=== PATIENT | male | born 1935 | race Caucasian/White ===

== ENCOUNTER 2016-05-19 10:20 | Inpatient (IN) ==
[2016-05-19] MEDS ORDERED: methylPREDNISolone 125 MG/2 ML VIAL IVP ONE (10:23)
[2016-05-19] MEDS ORDERED: Ipratropium/Albuterol Neb 3 ML IH ONE (10:23)
[2016-05-19] MEDS ORDERED: Ipratropium/Albuterol Neb 3 ML ONE (10:25)
--- NOTE | 2016-05-19 10:26 | Emergency Department Note ---
Disposition Clinical Impression: Atrial fibrillation with RVR Pneumonia Qualifiers: Pneumonia type: due to unspecified organism Laterality: left Lung location: lower lobe of lung Qualified Code(s): J18.1 - Lobar pneumonia, unspecified organism Disposition: Admitted As Inpatient Condition: Serious Referrals: Jaspreet Bal Jr, MD [Primary Care Provider] - Forms: ED Satisfaction Letter Time of Disposition: 12:02 SOB HPI - General Chief Complaint: ED Shortness of Breath/Dyspnea Stated Complaint: MYNOR Time Seen by Provider: 05/19/16 10:24 Source: patient Mode of arrival: EMS Limitations: no limitations Nursing Notes Reviewed: Yes Vital Signs Reviewed: Yes - History of Present Illness 81-year-old with a history of lung cancer comes in with increasing shortness of breath. Squad reports that his pulse ox was in the high 70s on their arrival. Given an albuterol treatment and oxygen with coming up to the 88 range. The patient states he is a DNR and does not want to be intubated no resuscitation. Recent renal function has been normal. Echocardiogram done 02/2015 showed an EF of 40%. Pt Subjective Complaint: shortness of breath Onset (ago): Just S3B [employer] Context: recent illness (On cancer) Severity: moderate Consistency/Duration: constant Improves with: bronchodilators Worsens with: exertion Known history of: COPD Associated symptoms: Reports: cough, wheezing Treatment prior to arrival: oxygen, bronchodilator Cough present: Yes Cough Description: Involuntary Cough Frequency: Intermittent - Related Data Home Medications Medication Instructions Recorded Confirmed Budesonide/Formoterol 160/4.5 2 puff IH BIDR 02/28/15 12/17/15 [Symbicort 160/4.5] Furosemide [Lasix] 40 mg PO DAILY 02/28/15 12/17/15 Metoprolol XL (24 HR) Succ [Toprol 50 mg PO DAILY 02/28/15 12/17/15 Xl] Simvastatin [Zocor] 20 mg PO DAILY 02/28/15 12/17/15 Tamsulosin [Flomax] 0.4 mg PO DAILY 02/28/15 12/17/15 Tiotropium [Spiriva] 18 mcg IH DAILY 02/28/15 12/17/15 Zolpidem [Ambien] 10 mg PO HS 02/28/15 12/17/15 Albuterol Sulfate [Albuterol 2 puff IH Q4H PRN 12/17/15 12/17/15 Inhaler] Losartan Potassium [Cozaar] 50 mg PO DAILY 12/17/15 12/17/15 PredniSONE 10 mg PO TAPER MDD Started 12/17/15 12/17/15 12-15-15. Ranolazine [Ranexa] 500 mg PO BID 12/17/15 12/17/15 TraMADol [Ultram] 50 - 100 mg PO Q4-6H PRN 12/17/15 12/17/15 Previous Rx's Medication Instructions Recorded Aspirin 81 mg PO DAILY #30 tab.chew 03/01/15 Citalopram [CeleXA] 20 mg PO DAILY #30 tablet 12/20/15 Levofloxacin [Levaquin] 500 mg PO DAILY #4 tablet 12/20/15 OxyCODONE Immed Rel [Roxicodone 5 5 - 10 mg PO Q6H PRN #60 tab 12/20/15 MG] PredniSONE 30 mg PO AD #9 tablet 12/20/15 Azithromycin [Azithromycin 6-Tab 250 mg PO PER PKG DI #6 tab 03/06/16 Pack] PredniSONE 60 mg PO DAILY #9 tablet 03/06/16 Allergies Allergy/AdvReac Type Severity Reaction Status Date / Time codeine Allergy Anaphylaxis Verified 05/20/15 09:12 Constitutional: Denies: fever, chills, weakness, weight change Eyes: Denies: eye pain, eye discharge, vision change ENT ED: Denies: ear pain, throat pain, dental pain, hearing loss, epistaxis, congestion, dysphagia Cardiovascular: Denies: chest pain, palpitations, dyspnea on exertion, edema, syncope Respiratory: Reports: cough, dyspnea, wheezes. Denies: hemoptysis, stridor Gastrointestinal: Denies: abdominal pain, nausea, vomiting, diarrhea, constipation, hematemesis, melena, hematochezia Genitourinary: Denies: urgency, dysuria, frequency, hematuria Musculoskeletal: Denies: back pain, neck pain, arthralgia, myalgia Integumentary: Denies: rash, abrasion, lesions Neurological: Denies: headache, weakness, numbness, paresthesias, confusion, abnormal gait, vertigo Psychiatric: Denies: anxiety, depression, suicidal thoughts, homicidal thoughts , auditory hallucinations, visual hallucinations Endocrine: Denies: fatigue Hematological/Lymphatic: Denies: easy bleeding, easy bruising Allergic/Immunologic: Denies: facial swelling, urticaria Past Medical History - Past Medical History Medical history: Reports: arthritis, asthma, cancer, cardiomyopathy, COPD, coronary artery disease, CVA, GERD, hyperlipidemia, hypertension, renal disease , other Surgical history: Reports: angioplasty/stent, cholecystectomy, coronary bypass ( CABG), pacemaker/AICD, other (Multiple abdominal surgeries) Psychiatric history: Reports: no psych history - Social History Smoking Status: Former smoker Smokeless Tobacco Status: No Alcohol use: Reports: none Drug use: Reports: none Physical Exam - General Limitations: no limitations General appearance: alert, in no apparent distress - Head Head exam: atraumatic, normocephalic, normal inspection - Eye Eye exam: Present: normal appearance, PERRL, EOMI - ENT ENT exam: normal exam, normal oropharynx, mucous membranes moist - Neck Neck exam: Present: normal inspection, full ROM, trachea midline - Chest Chest inspection: Present: normal inspection, symmetric chest wall rise - Respiratory Respiratory exam: Present: wheezes, accessory muscle use - Cardiovascular Cardiovascular exam: Present: regular rate, normal rhythm, normal heart sounds - Abdominal Exam Abdominal exam: Present: soft, Non-Tender. Absent: tenderness, distention, guarding, rebound, rigidity - Extremities Exam Extremities exam: Present: normal inspection, full ROM. Absent: tenderness, pedal edema - Expanded Lower Extremity Exam Neurovascular/Tendon exam: Absent: motor deficit, sensory deficit, tendon deficit Gait: observed and normal - Back Exam Back exam: Present: normal inspection, full ROM. Absent: tenderness - Neurological Exam Neurological exam: Present: alert, oriented X3 - Psychiatric Psychiatric exam: Present: normal affect, normal mood - Skin Skin exam: Present: warm, dry, intact, normal color Course - Reevaluation(s) Reevaluation #1: 81-year-old male with history of lung cancer who is a DNR. Patient comes in short of breath was found to have pneumonia. Patient also in A. fib RVR. Patient 's EF is 40%. Normal renal function. His BNP is 150 range. I discussed the case with cardiology they recommended low-dose Cardizem. Time: 11:57 - Consultations Consultation #1: Discussed with Dr. Feliz Gonzales, recommends low-dose Cardizem admission. Time: 11:56 Consultation #2: Discussed with , admit. Time: 12:01 Vital Signs O2 Sat by Pulse Oximetry 88 L 05/19/16 10:22 Temperature 99.6 F 05/19/16 10:23 Pulse Rate 152 05/19/16 10:23 Respiratory Rate 24 05/19/16 10:28 Blood Pressure 140/62 05/19/16 10:23 O2 Sat by Pulse Oximetry 89 L 05/19/16 10:28 Oxygen Delivery Oxygen Delivery Non Rebreather Mask Shortness of Breath/Dyspnea - Differential Diagnosis Likely: pneumonia - Lab Data Lab results reviewed: Yes I reviewed the patient's lab results. Result diagrams: 05/19/16 10:52 05/19/16 10:52 Lab Results 05/19/16 05/19/16 05/19/16 Range/Units 10:52 10:52 10:52 WBC 11.2 H (4.3-11.1) K/mcL RBC 3.83 L (4.19-5.50) M/mcL Hgb 9.1 L (12.9-16.9) g/dL Hct 32.0 L (37.5-50.1) % MCV 83.6 (83.0-100.0) fL MCH 23.8 L (28.0-33.3) pg MCHC 28.4 L (31.6-35.5) g/dL RDW 16.5 H (11.5-14.5) % Plt Count 124 L (140-400) K/mcL MPV 11.2 (9.4-12.4) fL Immature Gran % 0.4 (0-4) % Seg Neutrophils % 76.3 % Lymphocytes % 10.5 % Monocytes % 12.4 % Eosinophils % 0.3 % Basophils % 0.1 % Neutrophils # 8.6 (1.6-8.9) K/mcL Lymphocytes # 1.2 (0.6-4.6) K/mcL Monocytes # 1.4 H (0.0-1.3) K/mcL Eosinophils # 0.0 (0.0-0.6) K/mcL Basophils # 0.0 (0.0-0.2) K/mcL Platelet Estimate Normal (Normal) Hypochromasia Present A (Not Present) Macrocytosis Present A (Not Present) Target Cells 1+ A (Not Present) Sodium 143 (136-145) mEq/L Potassium 3.8 (3.5-4.5) mEq/L Chloride 104 (98-109) mEq/L Carbon Dioxide 31 H (19-29) mEq/L BUN 18 (8-26) mg/dL Creatinine 1.11 (0.72-1.25) mg/dL Est GFR ( Amer) > 60 (> 60) Est GFR (Non-Af Amer) > 60 (> 60) BUN/Creatinine Ratio 16 (6-26) Glucose 122 H (70-99) mg/dL Calculated Osmolality 299 (280-300) Calcium 8.9 (8.6-10.8) mg/dL Troponin I 0.04 H* (0-0.03) ng/mL B-Natriuretic Peptide (0-100) pg/mL 05/19/16 Range/Units 10:52 WBC (4.3-11.1) K/mcL RBC (4.19-5.50) M/mcL Hgb (12.9-16.9) g/dL Hct (37.5-50.1) % MCV (83.0-100.0) fL MCH (28.0-33.3) pg MCHC (31.6-35.5) g/dL RDW (11.5-14.5) % Plt Count (140-400) K/mcL MPV (9.4-12.4) fL Immature Gran % (0-4) % Seg Neutrophils % % Lymphocytes % % Monocytes % % Eosinophils % % Basophils % % Neutrophils # (1.6-8.9) K/mcL Lymphocytes # (0.6-4.6) K/mcL Monocytes # (0.0-1.3) K/mcL Eosinophils # (0.0-0.6) K/mcL Basophils # (0.0-0.2) K/mcL Platelet Estimate (Normal) Hypochromasia (Not Present) Macrocytosis (Not Present) Target Cells (Not Present) Sodium (136-145) mEq/L Potassium (3.5-4.5) mEq/L Chloride (98-109) mEq/L Carbon Dioxide (19-29) mEq/L BUN (8-26) mg/dL Creatinine (0.72-1.25) mg/dL Est GFR ( Amer) (> 60) Est GFR (Non-Af Amer) (> 60) BUN/Creatinine Ratio (6-26) Glucose (70-99) mg/dL Calculated Osmolality (280-300) Calcium (8.6-10.8) mg/dL Troponin I (0-0.03) ng/mL B-Natriuretic Peptide 155 H (0-100) pg/mL - Radiology Data Radiology results reviewed: Yes I reviewed the patient's radiology results. Chest X-Ray 05/19/16 10:23 IMPRESSION: Left lateral basilar consolidation compatible with pneumonia. Right basilar pulmonary nodule remains. D/ / Quinton Watts MD / Quinton Watts MD Interpreting Provider: Quinton Watts MD - EKG Data EKG attestation: Yes I reviewed and interpreted this EKG. Rate: Reports: tachycardia Rhythm: Reports: A.Fib Interpretation: Reports: other (A. fib RVR) Critical Care Time Critical Care Time: Yes Total Critical Care Time: 30 Attestation: The high probability of a clinically significant, sudden or life threatening deterioration of the [cardiovascular] system(s) required my full and direct attention, intervention and personal management. The aggregate critical care time was [30] minutes. This time is in addition to time spent performing reported procedures but includes the following: [x] Data Review and interpretation [x] Patient assessment and monitoring of vital signs [x] Documentation [x] Medication orders and management
[2016-05-19 11:03] LABS: Basophils % 0.1 %; Eosinophils % 0.3 %; Hemoglobin 9.1 g/dL (12.9-16.9); Immature Granulocytes % 0.4 % (0-4)
[2016-05-19 11:04] LABS: Lymphocytes # 1.2 K/mcL (0.6-4.6); Lymphocytes % 10.5 %; Mean Corpuscular HGB Conc 28.4 g/dL (31.6-35.5); Mean Corpuscular Hemoglobin 23.8 pg (28.0-33.3); Mean Corpuscular Volume 83.6 fL (83.0-100.0); Mean Platelet Volume 11.2 fL (9.4-12.4); Monocytes # 1.4 K/mcL (0.0-1.3); Monocytes % 12.4 %; Platelet Count 124 K/mcL (140-400); Red Blood Count 3.83 M/mcL (4.19-5.50); Red Cell Distribution Width 16.5 % (11.5-14.5); Segmented Neutrophils % 76.3 %
[2016-05-19] MEDS ORDERED: *HR* HYDROmorphone (PF) 1 MG/ML SYRINGE IVP ONE (11:13)
[2016-05-19] MEDS ORDERED: Ondansetron 4 MG/2 ML VIAL IVP ONE (11:13)
[2016-05-19 11:16] LABS: BUN/Creatinine Ratio 16 (6-26); Blood Urea Nitrogen 18 mg/dL (8-26); Calcium 8.9 mg/dL (8.6-10.8); Carbon Dioxide 31 mEq/L (19-29); Chloride 104 mEq/L (98-109); Glucose 122 mg/dL (70-99); Osmolality,Calculated 299 (280-300); Potassium 3.8 mEq/L (3.5-4.5); Sodium 143 mEq/L (136-145); eGFR For African Americans > 60 (> 60); eGFR For Non-African Americans > 60 (> 60)
[2016-05-19 11:26] LABS: Neutrophils # 8.6 K/mcL (1.6-8.9)
[2016-05-19 11:30] LABS: Hypochromasia Present (Not Present); Macrocytosis Present (Not Present)
[2016-05-19 11:31] LABS: Platelet Estimate Normal (Normal); Target Cells 1+ (Not Present)
[2016-05-19] MEDS ORDERED: Piperacillin/Tazobactam 3.375 GM in D5% in Water (Mini-Bag+) 100 ML IVPB ONE (11:45)
[2016-05-19] MEDS ORDERED: Naloxone 0.4 MG/ML INJ IVP PRN (12:56)
[2016-05-19] MEDS ORDERED: Acetaminophen 325 MG TABLET PO PRN (12:56)
[2016-05-19] MEDS ORDERED: Ondansetron 4 MG/2 ML VIAL IVP PRN (12:56)
[2016-05-19] MEDS ORDERED: *HR* OxyCODONE Immed Rel 5 MG TABLET PO PRN (12:57)
--- NOTE | 2016-05-19 13:05 | Internal Med History&Physical ---
Date of Encounter: 05/19/16 Time of Encounter: 12:30 Assessment and Plan (1) Acute and chronic respiratory failure with hypoxia Current visit: Yes Status: Acute Due to pneumonia and COPD exacerbation. Continue O2 supplementation. Treat underlying conditions. Patient is DNR comfort care and DNI. (2) Pneumonia Current visit: Yes Status: Acute Admit inpatient. Patient with history of lung cancer with pneumonia. Will treat with broad-spectrum IV antibiotics. Follow culture results. Patient at high risk for complications from this condition. Qualifiers: Pneumonia type: due to Pneumococcus Laterality: left Lung location: lower lobe of lung Qualified Code(s): J13 - Pneumonia due to Streptococcus pneumoniae (3) Chronic combined systolic and diastolic congestive heart failure Current visit: Yes Status: Chronic Chronic CHF. Not in acute exacerbation. continue oral Lasix. (4) Atrial fibrillation with RVR Current visit: Yes Status: Acute Rapid A. fib. Given patient's severe cardiomyopathy, will start on Cardizem drip without bolus. Monitor heart rate. Cardiology has been consulted and will follow. (5) Acute exacerbation of chronic obstructive pulmonary disease (COPD) Current visit: Yes Status: Acute Will treat with IV steroids, scheduled bronchodilator nebs. Patient will also be receiving 6. (6) Coronary artery disease Current visit: Yes Status: Chronic Continue home medications for this condition. Patient describes chest pain but this appears to be more pleuritic in nature. We will trend troponins. Patient will be monitored with telemetry. Qualifiers: Coronary Disease-Associated Artery/Lesion type: [place] artery [place] vs. transplanted heart: [place] heart Associated angina: without angina Qualified Code(s): I25.10 - Atherosclerotic heart disease of [place] coronary artery without angina pectoris Internal Medicine - H&P: HPI Chief complaint: Shortness of breath, generalized weakness, back pain, cough, chest pain Admitted From: Emergency Dept Plans for Post Hospital Care: Home (With home health) History of present illness: Mr. Munroe is a 81 year old male patient with history of coronary artery disease status post quadruple CABG, chronic COPD chronic respiratory failure, lung cancer, hypertension, cardiomyopathy and chronic combined congestive heart failure presented to the ER with complaints of cough, shortness of breath, malaise, back pain and chest pain. His symptoms have been going on for about 2 weeks now. And they have been progressively getting worse. He has been struggling to breathe since this morning and was in severe distress on presentation to the ER. He was started on Levaquin as outpatient for possible pneumonia and he has been taking it as prescribed. He complains of nausea. No diarrhea. No hemoptysis. Patient's chest pain is all across his chest and intermittent worsens with deep breaths and coughing. He is also been having palpitations. Past Med Surg Social Fam HX - Past Medical History Attestation: Yes The following information was validated with the patient. Medical history: arthritis, asthma, cancer, cardiomyopathy, COPD, coronary artery disease, CVA, GERD, hyperlipidemia, hypertension, renal disease, other Psychiatric history: no psych history - Past Surgical History Surgical History: angioplasty/stent, cholecystectomy, coronary bypass (CABG), pacemaker/AICD, other (Multiple abdominal surgeries) - Social History Smoking Status: Former smoker Smokeless Tobacco Status: No Alcohol use: none Drug use: none - Family History Mother Living Status: Internal Medicine - H&P: Meds Budesonide/Formoterol 160/4.5 [Symbicort 160/4.5] 2 puff IH BIDR 02/28/15 [ History] Furosemide [Lasix] 40 mg PO DAILY 02/28/15 [History] Metoprolol XL (24 HR) Succ [Toprol Xl] 50 mg PO DAILY 02/28/15 [History] Simvastatin [Zocor] 20 mg PO DAILY 02/28/15 [History] Tamsulosin [Flomax] 0.4 mg PO DAILY 02/28/15 [History] Tiotropium [Spiriva] 18 mcg IH DAILY 02/28/15 [History] Zolpidem [Ambien] 10 mg PO HS 02/28/15 [History] Aspirin 81 mg PO DAILY #30 tab.chew 03/01/15 [Rx] Albuterol Sulfate [Albuterol Inhaler] 2 puff IH Q4H PRN 12/17/15 [History] Losartan Potassium [Cozaar] 50 mg PO DAILY 12/17/15 [History] Ranolazine [Ranexa] 500 mg PO DAILY 12/17/15 [History] TraMADol [Ultram] 50 - 100 mg PO Q4-6H PRN 12/17/15 [History] Levofloxacin [Levaquin] 500 mg PO DAILY #4 tablet 12/20/15 [Rx] OxyCODONE Immed Rel [Roxicodone 5 MG] 5 - 10 mg PO Q6H PRN #60 tab 12/20/15 [Rx] PredniSONE 40 mg PO DAILY 05/19/16 [History] Allergies codeine Allergy (Verified 05/20/15 09:12) Anaphylaxis All Systems PM: A 10-system review of systems was performed and is negative for pertinent findings except as documented above in the HPI. - Constitutional Constitutional: malaise, no chills, no fever(s), no night sweats - EENT Eyes: no change in vision, no discharge, no pain, no photophobia Ears: no ear discharge, no ear pain, no tinnitus Nose, mouth and throat: no dysphagia, no nasal discharge, no neck pain, no sore throat - Cardiovascular Cardiovascular ROS IM: chest pain, no diaphoresis, no dyspnea, no lightheadedness, no palpitations, no syncope - Respiratory Respiratory: cough, dyspnea, wheezing, no excessive phlegm production - Gastrointestinal Gastrointestinal: no abdominal pain, no diarrhea, no hematemesis, no hematochezia, no melena, no nausea, no vomiting - Musculoskeletal Musculoskeletal ROS IM: no numbness, no tingling - Integumentary Integumentary IM: no rash, no unusual bruising - Neurological Neurological ROS: no confusion, no convulsions, no focal weakness, no numbness, no tingling, no tremor(s) - Hematologic/Lymphatic Hematologic/Lymphatic: no easy bruising - Constitutional Vitals: Temp Pulse Resp BP Pulse Ox 0 F L 129 20 116/61 96 05/19/16 12:59 05/19/16 12:35 05/19/16 12:59 05/19/16 12:59 05/19/16 12:35 General appearance: Present: cooperative, A&O X 3, answers questions appropriately Exam: Moderate distress - Eye Eye exam: Present: EOMI, PERRL, conjuntiva pink, sclera anicteric - Neck Neck exam general surgery: Present: supple, trachea midline. Absent: lymphadenopathy - Respiratory Respiratory exam: Present: prolonged expiratory phase, wheezes. Absent: accessory muscle use, rales, rhonchi Additional comments: Coarse breath sounds at both bases - Cardiovascular Cardiovascular exam: Present: irregular rhythm, +S1, +S2, tachycardia. Absent: diastolic murmur, gallop, rubs, systolic murmur - GI/Abdominal GI/Abdominal exam: Present: normal bowel sounds, soft, no peritoneal signs. Absent: distended, tenderness - Extremities Exam Extremities exam: Present: warm, radial pulses palpable and symetrical. Absent : calf tenderness, cyanotic, pedal edema - Neurological Exam Neurological exam: Present: alert, CN II-XII intact, oriented X3, no focal deficits. Absent: facial droop, speech deficit Internal Med - H&P Results - Labs CBC & Chem 7: 05/19/16 10:52 05/19/16 10:52 - EKG Data -: EKG Interpreted by Myself - EKG Data EKG comments: 05/19/16 13:11 A. fib with RVR - Impressions Impressions Chest X-Ray 05/19/16 10:23 IMPRESSION: Left lateral basilar consolidation compatible with pneumonia. Right basilar pulmonary nodule remains. D/ / Quinton Watts MD / Quinton Watts MD Interpreting Provider: Quinton Watts MD - Attending Attestation This document has been at least partially created by [employer] voice recognition technology by Dr. Rod. Errors in grammar, wording or other phrases may exist. If errors are found after the documentation is signed, they will be addressed individually in the addendum section of this document when appropriate.
[2016-05-19] MEDS: Vancomycin 1,500 MG in D5% in Water 250 ML IVPB SCH (14:55)
[2016-05-19] MEDS: *HR* Morphine 2 MG/ML SYRINGE IVP PRN ×2 (14:55→19:48)
[2016-05-19] MEDS: Ipratropium/Albuterol Neb 3 ML IH SCH ×3 (16:28→23:33)
[2016-05-19] MEDS: Doxycycline 100 MG in 0.9 % Sodium Chloride Mini Bag 100 ML IVPB SCH (17:38)
[2016-05-19] MEDS: *HR* Heparin 5,000 UNIT/ML VIAL SQ SCH (17:38)
[2016-05-19] MEDS: methylPREDNISolone 125 MG/2 ML VIAL IVP SCH (17:38)
[2016-05-19] MEDS: Budesonide/Formoterol 160/4.5 MDI IH SCH (21:15)
[2016-05-19] MEDS: Piperacillin/Tazobactam 3.375 GM in D5% in Water (Mini-Bag+) 100 ML IVPB SCH (21:48)
[2016-05-20] MEDS: methylPREDNISolone 125 MG/2 ML VIAL IVP SCH ×3 (01:54→17:30)
[2016-05-20] MEDS: Vancomycin 1,500 MG in D5% in Water 250 ML IVPB SCH (01:58)
[2016-05-20] MEDS: Ipratropium/Albuterol Neb 3 ML IH SCH ×6 (03:50→20:24)
[2016-05-20] MEDS: *HR* Heparin 5,000 UNIT/ML VIAL SQ SCH ×2 (04:59→17:30)
[2016-05-20] MEDS: Piperacillin/Tazobactam 3.375 GM in D5% in Water (Mini-Bag+) 100 ML IVPB SCH (04:59)
[2016-05-20] MEDS: Doxycycline 100 MG in 0.9 % Sodium Chloride Mini Bag 100 ML IVPB SCH (05:00)
[2016-05-20] MEDS: Budesonide/Formoterol 160/4.5 MDI IH SCH ×2 (07:54→20:24)
[2016-05-20 08:11] LABS: Immature Granulocytes % 0.4 % (0-4)
[2016-05-20 08:13] LABS: Hematocrit 28.8 % (37.5-50.1); Hemoglobin 7.8 g/dL (12.9-16.9); Lymphocytes # 0.1 K/mcL (0.6-4.6); Lymphocytes % 1.5 %; Mean Corpuscular HGB Conc 27.1 g/dL (31.6-35.5); Mean Corpuscular Hemoglobin 22.6 pg (28.0-33.3); Mean Corpuscular Volume 83.5 fL (83.0-100.0); Mean Platelet Volume 12.2 fL (9.4-12.4); Monocytes # 0.3 K/mcL (0.0-1.3); Monocytes % 3.7 %; Neutrophils # 6.3 K/mcL (1.6-8.9); Red Blood Count 3.45 M/mcL (4.19-5.50); Red Cell Distribution Width 16.4 % (11.5-14.5); Segmented Neutrophils % 94.4 %
[2016-05-20] MEDS: Aspirin 81 MG TAB.CHEW PO SCH (08:26)
[2016-05-20] MEDS: Ranolazine 500 MG TAB.ER.12H PO SCH (08:27)
[2016-05-20] MEDS ORDERED: Aminoglycoside Consult 1 EACH MC ONE (08:29)
[2016-05-20 08:34] LABS: Calcium 8.9 mg/dL (8.6-10.8); Potassium 4.2 mEq/L (3.5-4.5)
[2016-05-20 08:54] LABS: Platelet Count 92 K/mcL (140-400)
[2016-05-20 08:57] LABS: Platelet Estimate Slight Decrease (Normal); Toxic Granulation Present (Not Present)
[2016-05-20 08:58] LABS: Anisocytosis 1+ (Not Present); Hypochromasia Present (Not Present); Microcytosis Present (Not Present); Ovalocytes 1+ (Not Present); Polychromasia 1+ (Not Present)
[2016-05-20] MEDS ORDERED: Metoprolol XL (24 HR) Succ 50 MG TAB.ER.24H PO SCH (09:00)
[2016-05-20] MEDS ORDERED: Furosemide 40 MG TABLET PO SCH (09:00)
--- NOTE | 2016-05-20 09:29 | Cardiology Consult Note ---
Date of Encounter: 05/20/16 Time of Encounter: 09:16 Assessment and Plan (1) Cardiomyopathy Current Visit: No Status: Chronic S/P ICD. Continue current meds. Qualifiers: Cardiomyopathy type: ischemic Qualified Code(s): I25.5 - Ischemic cardiomyopathy (2) AICD (automatic cardioverter/defibrillator) present Current Visit: No Status: Chronic Recent check normal, did show some PAF in last few months. (3) Atrial fibrillation with RVR Current Visit: Yes Status: Acute Rapid A. fib. Given patient's severe cardiomyopathy, will start on Cardizem drip without bolus. Monitor heart rate. Would recheck echo, increase BBlocker. Needs to consider anticoagulation. Discussion w patient/family: The assessment and plan as outlined above was discussed with the patient and/or family members who expressed understanding and agreement. All questions were answered. Thank you for involving us in the care of your patient. Please call with any questions. History of Present Illness Consult date: 05/20/16 Requesting physician: Martinez James Consult reason: AF Chief complaint: SOB History of present illness: Mr. Munroe is a 81 year old male with history of lung CA, CAD, ischemic cardiomyopathy S/P ICD. He presents with SOB, possible COPD exaacerbation and was noted to be in AF with RVR on admission. He was given IV cardizem and has converted to NSR. Past Med Surg Social Fam HX - Past Medical History Medical history: arthritis, asthma, cancer, cardiomyopathy, COPD, coronary artery disease, CVA, GERD, hyperlipidemia, hypertension, renal disease, other Psychiatric history: no psych history - Past Surgical History Surgical History: angioplasty/stent, cholecystectomy, coronary bypass (CABG), pacemaker/AICD, other - Social History Smoking Status: Former smoker Smokeless Tobacco Status: No Alcohol use: none Drug use: none - Family History Mother Living Status: Medications and Allergies Budesonide/Formoterol 160/4.5 [Symbicort 160/4.5] 2 puff IH BIDR 02/28/15 [ History] Furosemide [Lasix] 40 mg PO DAILY 02/28/15 [History] Metoprolol XL (24 HR) Succ [Toprol Xl] 50 mg PO DAILY 02/28/15 [History] Simvastatin [Zocor] 20 mg PO DAILY 02/28/15 [History] Tamsulosin [Flomax] 0.4 mg PO DAILY 02/28/15 [History] Tiotropium [Spiriva] 18 mcg IH DAILY 02/28/15 [History] Zolpidem [Ambien] 10 mg PO HS 02/28/15 [History] Aspirin 81 mg PO DAILY #30 tab.chew 03/01/15 [Rx] Albuterol Sulfate [Albuterol Inhaler] 2 puff IH Q4H PRN 12/17/15 [History] Losartan Potassium [Cozaar] 50 mg PO DAILY 12/17/15 [History] Ranolazine [Ranexa] 500 mg PO DAILY 12/17/15 [History] TraMADol [Ultram] 50 - 100 mg PO Q4-6H PRN 12/17/15 [History] Levofloxacin [Levaquin] 500 mg PO DAILY #4 tablet 12/20/15 [Rx] OxyCODONE Immed Rel [Roxicodone 5 MG] 5 - 10 mg PO Q6H PRN #60 tab 12/20/15 [Rx] PredniSONE 40 mg PO DAILY 05/19/16 [History] Allergies codeine Allergy (Verified 05/20/15 09:12) Anaphylaxis All Systems Review: A 10-system review of systems was performed and is negative for pertinent findings except as documented above in the HPI. Physical Examination Vital Signs, Last 4 Hours Temp Pulse Resp BP Pulse Ox 05/20/16 08:42 97.4 F L 71 14 108/86 96 05/20/16 08:00 70 20 114/70 97 05/20/16 07:54 18 98 General: Conversant, No Apparent Distress HEENT: Atraumatic, Normocephaly, Mucus Membranes Moist, Other (device site normal) Lungs: Other (ronchi and wheezing) Abdomen: Soft, Non-Tender Extremities: No Clubbing, No Cyanosis, No Edema, Normal Pulses Results 05/20/16 07:19 05/20/16 07:19 Lab Results 05/19/16 05/19/16 05/20/16 15:59 22:21 07:19 WBC 6.7 Hgb 7.8 L Hct 28.8 L Plt Count 92 L Sodium Potassium Chloride Carbon Dioxide BUN Creatinine Glucose Calcium Troponin I 0.07 H* 0.05 H* 03/19/17 07:19 WBC Hgb Hct Plt Count Sodium 137 Potassium 4.2 Chloride 100 Carbon Dioxide 27 BUN 28 H D Creatinine 1.77 H D Glucose 150 H Calcium 8.9 Troponin I Consult Discharge Plan - Plan Referrals: Jaspreet aBl Jr, MD [Primary Care Provider] -
--- NOTE | 2016-05-20 10:10 | Internal Med Progress Note ---
Date of Encounter: 05/20/16 Time of Encounter: 10:07 - Assessment and plan (1) Acute and chronic respiratory failure with hypoxia Current Visit: Yes Status: Acute Assessment and plan: Acute on chronic hypoxic respiratory failure secondary to acute COPD exacerbation due to community-acquired pneumonia suspicious for gram-negative pneumonia Discontinue doxycycline and discontinue vancomycin and Zosyn due to acute renal failure Start Levaquin and cefepime Follow blood cultures, continue Solu-Medrol, oxygen and inhalers (2) Atrial fibrillation with RVR Current Visit: Yes Status: Acute Assessment and plan: Like his secondary to community-acquired pneumonia and dehydration Cardizem drip has been discontinued, may resume if becomes tachycardic again. Cardiology recommendations appreciated Continue metoprolol Order echocardiogram (3) Community acquired pneumonia Current Visit: No Status: Acute (4) Thrombocytopenia Current Visit: No Status: Chronic Assessment and plan: Likely secondary to infection (5) Right lower lobe lung mass Current Visit: No Status: Chronic Assessment and plan: History of lung cancer, the patient decided not to receive treatment next Consult palliative care (6) Cardiomyopathy Current Visit: No Status: Chronic Assessment and plan: Status post AICD Qualifiers: Cardiomyopathy type: ischemic Qualified Code(s): I25.5 - Ischemic cardiomyopathy (7) AICD (automatic cardioverter/defibrillator) present Current Visit: No Status: Chronic (8) Pulmonary nodule Current Visit: No Status: Acute (9) COPD exacerbation Current Visit: No Status: Acute (10) Elevated troponin Current Visit: No Status: Acute Assessment and plan: Likely secondary to demand ischemia (11) Chronic combined systolic and diastolic congestive heart failure Current Visit: Yes Status: Chronic Assessment and plan: Ejection fraction of 40% on 2014 Echocardiogram ordered Hold Lasix (12) ARF (acute renal failure) Current Visit: Yes Status: Acute Assessment and plan: Acute renal failure likely secondary to infection Start mild hydration, hold Lasix Qualifiers: Acute renal failure type: unspecified Qualified Code(s): N17.9 - Acute kidney failure, unspecified - Time Spent With Patient Greater than 35 minutes - Subjective Interval history: The patient is short of breath, feeling slightly better than yesterday, denies any chest pain, no abdominal pain, no dysuria, no diarrhea. Has been bringing up yellowish phlegm, no fevers - Constitutional Vitals: Temp Pulse Resp BP Pulse Ox 97.4 F L 71 14 108/86 96 05/20/16 08:42 05/20/16 08:42 05/20/16 08:42 05/20/16 08:42 05/20/16 08:42 General appearance: Present: cooperative, A&O X 3, answers questions appropriately - Head Head exam: Present: atraumatic, normocephalic - Eye Eye exam: Present: PERRL, conjuntiva pink, sclera anicteric Pupils: Present: PERRL - Neck Neck exam general surgery: Present: supple, trachea midline. Absent: lymphadenopathy - Respiratory Respiratory exam: Present: decreased breath sounds, CTAB, rales (right basilar crackles , very diminished BS), wheezes. Absent: accessory muscle use, rhonchi - Cardiovascular Cardiovascular exam: Present: RRR, +S1, +S2. Absent: diastolic murmur, gallop, rubs, systolic murmur - GI/Abdominal GI/Abdominal exam: Present: normal bowel sounds, soft, no peritoneal signs. Absent: distended, tenderness - Extremities Exam Extremities exam: Present: warm, radial pulses palpable and symetrical. Absent : calf tenderness, cyanotic, pedal edema - Neurological Exam Neurological exam: Present: CN II-XII intact, oriented X3, no focal deficits. Absent: pronater drift, facial droop, speech deficit - Skin Skin exam: Present: dry, intact Internal Medicine: Result - Labs CBC & Chem 7: 05/20/16 07:19 05/20/16 07:19 Labs: Short CBC 05/20/16 Range/Units 07:19 WBC 6.7 (4.3-11.1) K/mcL Hgb 7.8 L (12.9-16.9) g/dL Hct 28.8 L (37.5-50.1) % Plt Count 92 L (140-400) K/mcL Neutrophils # 6.3 (1.6-8.9) K/mcL BMP 05/20/16 07:19 Sodium 137 Potassium 4.2 Chloride 100 Carbon Dioxide 27 BUN 28 H D Creatinine 1.77 H D Glucose 150 H Calcium 8.9 Cardiac Enzymes 05/19/16 05/19/16 Range/Units 15:59 22:21 Troponin I 0.07 H* 0.05 H* (0-0.03) ng/mL Consult Discharge Plan - Plan Referrals: Jaspreet Bal Jr, MD [Primary Care Provider] -
[2016-05-20] MEDS ORDERED: 0.9 % Sodium Chloride 1,000 ML IVC SCH (10:15)
[2016-05-20] MEDS: Cefepime HCl 1,000 MG in D5% in Water (Mini-Bag+) 100 ML IVPB SCH ×2 (11:31→18:00)
[2016-05-20] MEDS: Levofloxacin 750 MG/150 ML 750 MG/150 ML BAG IVPB SCH (11:32)
[2016-05-20] MEDS ORDERED: Metoprolol XL (24 HR) Succ 50 MG TAB.ER.24H PO ONE (12:30)
--- NOTE | 2016-05-20 12:54 | Electrocardiograph Report ---
[place] [id number] Test Date: 2016-05-19 Pat Name: Ayden Munroe Department: 105 Room: [facility] Gender: M Curriculum Specialist: : 1935 Requested By: Loy Spence Order Number: [id number] Reading MD: Lyndsey Castillo Measurements Intervals [place] Rate: 154 P: TX: 0 QRS: 69 QRSD: 96 T: 120 QT: 278 QTc: 365 Interpretive Statements ARTIFACT LIMITS ANALYSIS CONSIDER ATRIAL FIBRILLATION Electronically Signed On 05-20-2016 12:53:24 EDT by Lyndsey Castillo
--- NOTE | 2016-05-20 14:09 | Palliative - Consult Note ---
Date of Encounter: 05/20/16 Time of Encounter: 13:00 - Assessment and Plan (1) Dyspnea Current Visit: Yes Status: Acute Assessment and plan: Improving with current treatment of IV atb/supportive oxygen, bronchdilators. Monitor. Patient states he was actually up to 6 liters oxygen at home, currently on 2 liters. Qualifiers: Dyspnea type: unspecified Qualified Code(s): R06.00 - Dyspnea, unspecified (2) Generalized pain Current Visit: Yes Status: Acute Assessment and plan: Currently has Oxycodone and low dose Morphine - has required x2 last 24 hours and states this has been helpful. He only utilized Tramadol at home. Will need to evaluate pain needs closer to discharge and may need increased pain medications. (3) Counseling regarding advanced care planning and goals of care Current Visit: Yes Status: Acute Assessment and plan: Patient lives alone and has hired director of curriculum and instruction. Has oxygen and nebs through [employer]. Also has cane, walker, and electric scooter. Has 2 daughters - one is local and other resides [facility]. Patient only had financial POA, = we completed medical POA today. He elected [employer] as primary poa and out of town daughter Lorena as alternate. Copies provided to family. He completed DNR state form as DNRCC with Dr. Dotson last fall, and ER physician, Dr. Spence also completed one upon admission and pt once again signed as DNRCC. Will change code status in [facility]GR[employer] to reflect this. He does not feel ready for Hospice care at this time, and still wants to return to hospital for measures such as fluids/IV antibiotics if needed. I did discuss with him with children present, he needs to look ahead and do some planning for when he cannot care for himself. He may desire HH on discharge and I will ask social service to see in am to give some info and resources. Discussed AICD, and he is not ready to de-activate at this time. He has had for several years - has not been shocked to date. Will continue to follow. (4) Lung cancer Current Visit: No Status: Chronic Qualifiers: Laterality: right Lung location: unspecified part of lung Qualified Code( s): C34.91 - Malignant neoplasm of unspecified part of right bronchus or lung (5) Community acquired pneumonia Current Visit: No Status: Acute Palliative-CN HPI - Data of Consult Patient: known to practice within the last 3 years Consult date: 05/20/16 Requesting Physician: Martinez James Primary Care Provider: Jaspreet Bal Jr, MD - Consult Narrative History of present illness: Mr. Munroe is a 81 year old male known to me from previous visit last fall, who has known history of lung cancer which he refused any further workup or treatment for. He has had increasing shortness of breath, cough, and sputum production at home and was admitted and currently being treated for pneumonia. He has been followed by [facility] as well and has had AICD for cardiomyopathy for several years. He lives alone and received no services. Private pays someone to clean for him. At my visit, he is resting comfortably and is pleasant and talkative. His 2 daughters are at bedside. States he is feeling much better and breathing easy today. Denies any pain at present. Eating better today. Denies any n/v or constipation. CC: Martinez James Past Med Surg Social Fam HX - Past Medical History Medical history: arthritis, asthma, cancer, cardiomyopathy, COPD, coronary artery disease, CVA, GERD, hyperlipidemia, hypertension, renal disease, other Psychiatric history: no psych history - Past Surgical History Surgical History: angioplasty/stent, cholecystectomy, coronary bypass (CABG), pacemaker/AICD, other - Social History Smoking Status: Former smoker Smokeless Tobacco Status: No Alcohol use: none Drug use: none - Family History Mother Living Status: Medications and Allergies Budesonide/Formoterol 160/4.5 [Symbicort 160/4.5] 2 puff IH BIDR 02/28/15 [ History] Furosemide [Lasix] 40 mg PO DAILY 02/28/15 [History] Metoprolol XL (24 HR) Succ [Toprol Xl] 50 mg PO DAILY 02/28/15 [History] Simvastatin [Zocor] 20 mg PO DAILY 02/28/15 [History] Tamsulosin [Flomax] 0.4 mg PO DAILY 02/28/15 [History] Tiotropium [Spiriva] 18 mcg IH DAILY 02/28/15 [History] Zolpidem [Ambien] 10 mg PO HS 02/28/15 [History] Aspirin 81 mg PO DAILY #30 tab.chew 03/01/15 [Rx] Albuterol Sulfate [Albuterol Inhaler] 2 puff IH Q4H PRN 12/17/15 [History] Losartan Potassium [Cozaar] 50 mg PO DAILY 12/17/15 [History] Ranolazine [Ranexa] 500 mg PO DAILY 12/17/15 [History] TraMADol [Ultram] 50 - 100 mg PO Q4-6H PRN 12/17/15 [History] Levofloxacin [Levaquin] 500 mg PO DAILY #4 tablet 12/20/15 [Rx] OxyCODONE Immed Rel [Roxicodone 5 MG] 5 - 10 mg PO Q6H PRN #60 tab 12/20/15 [Rx] PredniSONE 40 mg PO DAILY 05/19/16 [History] Allergies codeine Allergy (Verified 05/20/15 09:12) Anaphylaxis All systems: reviewed and no additional remarkable complaints except as stated ( Shortness of breath at rest, cough, back pain, generalized weakness,) Palliative Care-Exam - Constitutional Vitals: Temp Pulse Resp BP Pulse Ox 97.4 F L 75 16 119/61 97 05/20/16 11:47 05/20/16 11:47 05/20/16 11:47 05/20/16 11:47 05/20/16 11:47 General appearance: Present: no acute distress - Head Head Exam: Present: normal inspection, normocephalic - Eye Eye exam: Present: normal appearance, PERRL - Respiratory Additional comments: Exp. wheezes and rhonchi throughout all lung ortega. - Cardiovascular Cardiovascular exam: Present: +S1, +S2 - GI/Abdominal Exam GI/Abdominal exam: Present: normal bowel sounds, soft - Extremities Exam Extremities exam: Present: normal capillary refill, normal inspection - Neurological Exam Neurological exam: Present: alert, oriented X3, strengths equal and symetr throughout - Psychiatric Psychiatric exam: Present: normal affect, normal mood - Skin Skin exam: Present: dry, warm Internal Medicine - CN: Reslt - Labs CBC & Chem 7: 05/20/16 07:19 05/20/16 07:19 Labs: Short CBC 05/20/16 Range/Units 07:19 WBC 6.7 (4.3-11.1) K/mcL Hgb 7.8 L (12.9-16.9) g/dL Hct 28.8 L (37.5-50.1) % Plt Count 92 L (140-400) K/mcL Neutrophils # 6.3 (1.6-8.9) K/mcL BMP 05/20/16 07:19 Sodium 137 Potassium 4.2 Chloride 100 Carbon Dioxide 27 BUN 28 H D Creatinine 1.77 H D Glucose 150 H Calcium 8.9 Cardiac Enzymes 05/19/16 05/19/16 Range/Units 15:59 22:21 Troponin I 0.07 H* 0.05 H* (0-0.03) ng/mL Consult Discharge Plan - Plan Referrals: Jaspreet Bal Jr, MD [Primary Care Provider] - Palliative Quality Palliative Quality: Screen for Code Status: Yes, Screen for Goals of Care: Yes, Screen for Pain: Yes, If Pain Regimen Started, Initiate Bowel Regimen: Yes, Screen for Nausea/Vomitting: Yes Code Status: 05/19/16 12:56 Resuscitation Status: Active [RES] Routine Comment: Resuscitation Status: Full Code Resuscitation Status: Active [RES] Routine Comment: Resuscitation Status: [id number]
[2016-05-20] MEDS ORDERED: Ipratropium/Albuterol Neb 3 ML IH PRN (14:22)
[2016-05-20] MEDS ORDERED: Levalbuterol Neb 1.25 MG/3 ML IH PRN (16:36)
[2016-05-21] MEDS: Ipratropium/Albuterol Neb 3 ML IH SCH ×6 (00:12→20:27)
[2016-05-21] MEDS: methylPREDNISolone 125 MG/2 ML VIAL IVP SCH ×2 (00:49→08:46)
[2016-05-21] MEDS: *HR* Morphine 2 MG/ML SYRINGE IVP PRN (00:49)
[2016-05-21 04:16] LABS: Hemoglobin 7.2 g/dL (12.9-16.9)
[2016-05-21 04:17] LABS: Hematocrit 25.6 % (37.5-50.1); Immature Platelets 6.2 % (1.1-6.1); Mean Corpuscular HGB Conc 28.1 g/dL (31.6-35.5); Mean Corpuscular Hemoglobin 22.8 pg (28.0-33.3); Mean Platelet Volume 11.5 fL (9.4-12.4); Red Blood Count 3.16 M/mcL (4.19-5.50); Red Cell Distribution Width 16.2 % (11.5-14.5)
[2016-05-21 04:28] LABS: Calcium 9.2 mg/dL (8.6-10.8); Potassium 4.1 mEq/L (3.5-4.5)
[2016-05-21] MEDS: Cefepime HCl 1,000 MG in D5% in Water (Mini-Bag+) 100 ML IVPB SCH ×2 (05:34→20:11)
[2016-05-21] MEDS: *HR* Heparin 5,000 UNIT/ML VIAL SQ SCH (05:35)
[2016-05-21] MEDS: Budesonide/Formoterol 160/4.5 MDI IH SCH ×2 (07:50→20:27)
[2016-05-21] MEDS: Ranolazine 500 MG TAB.ER.12H PO SCH (08:45)
[2016-05-21] MEDS: Aspirin 81 MG TAB.CHEW PO SCH (08:45)
[2016-05-21] MEDS: Metoprolol XL (24 HR) Succ 50 MG TAB.ER.24H PO SCH (08:46)
--- NOTE | 2016-05-21 09:35 | Cardiology Progress Note ---
Date of Encounter: 05/21/16 Time of Encounter: 09:00 Assessment and Plan (1) Pneumonia Current Visit: Yes Status: Acute Per cardiology: -Patient lung CA with increased shortness of breath. -Chest x-ray with pneumonia. -On ATB, nebs, steroids. -Blood Culture preliminary negative 2 -May be contributing to atrial fibrillation with RVR. -Management per primary service. (CONNER) Qualifiers: Pneumonia type: due to unspecified organism Laterality: left Lung location: lower lobe of lung Qualified Code(s): J18.1 - Lobar pneumonia, unspecified organism (2) Atrial fibrillation with RVR Current Visit: Yes Status: Acute Per cardiology: -Presume new onset Atrial fibrillation with RVR. -Previously on cardizem drip, not currently running. -On toprol 100mg po daily. -Currently sinus rhythm. -Average HR past 12 hours 107, sinus tachycardia. -Echo with EF 50%, indeterminate left ventricular diastolic dysfunction, atypical septal motion, normal right ventricular size and function, mild mitral regurgitation, borderline evidence for mild pulmonary hypertension, all visualized de la cruz with normal motion. -Hemoglobin 7.2, platelets 100. -[id number] score 6. -Will start cardizem CD 120mg PO daily and monitor HR and BP. -Discussed long-term anticoagulation with patient. Educated on low hemoglobin and platelets. Patient states that he does not want to be put on alf anticoagulation. Patient states he is considering doing nothing further. On asa only. (CONNER) (3) ARF (acute renal failure) Current Visit: Yes Status: Acute Per cardiology: -Creatinine 1.67. -Worsened from baseline of 0.9-1.2. -Will stop Losartan 50mg PO daily for now d/t worsening kidney function. Consider resuming once kidney function improves. -May be contributing to elevated troponin. -Can consider nephrology consult if patient wishes. (CONNER) Qualifiers: Acute renal failure type: unspecified Qualified Code(s): N17.9 - Acute kidney failure, unspecified (4) Elevated troponin Current Visit: No Status: Acute Per cardiology: -Peak troponin 0.07. -Echo showed EF 50%-- see above. -Do not suspect NSTEMI, suspect demand ischemia due to a.fib RVR, pneumonia, and ARF. No cardiac rehabilitation consult warranted. -CP free. Recommend medical management-- on aspirin, statin, beta diamond, ARB, and Ranexa. (CONNER) Discussion w patient/family: The assessment and plan as outlined above was discussed with the patient who expressed understanding and agreement. All questions were answered. Thank you for involving us in the care of your patient. Please call with any questions. Patient seen and examined with PRISCILA Mckinney Discussed and reviewed with . Subjective Principal diagnosis: Pneumonia Interval history: is an 81 year old male with a relevant past medical history of CAD , CABG X4 bypasses, COPD, lung CA, HTN, cardiomyopathy, CHF, CVA, renal disease , ICD. Patient was admitted with increased shortness of breath. Patient was noted to be in atrial fibrillation with RVR and cardiology was consulted. Patient denies dizziness or lightheadedness. Patient denies palpitations or fluttering. Patient states that he has lung cancer. He is refusing treatment for cancer. Patient states he is DNR-CC and is considering hospice. He states he is considering turning off his ICD, but he states he wishes to discuss with his daughters first. Emotional support given. (CONNER) Objective Vital Signs, Last 4 Hours Temp Pulse Resp BP Pulse Ox 05/21/16 07:50 18 125/79 90 L 05/21/16 07:43 97.8 F 125 20 125/79 92 L General: Conversant, No Apparent Distress HEENT: Atraumatic, Normocephaly, Mucus Membranes Moist Neck: No JVD, Normal carotid pulses Cardiac: Reg Rate and Rhythm, Normal S1 and S2, No Murmur, Other (Tachycardic) Lungs: Other (Diminished breath sounds to left lower lobe. Wheezing noted throughout. ) Neuro: Alert and responsive, No focal deficits noted Abdomen: Soft, Non-Tender Skin: No rashes noted on visualized skin Musculoskeletal: No Chest Wall Tenderness Extremities: No Clubbing, No Cyanosis, No Edema, Normal Pulses Results 05/21/16 03:46 05/21/16 03:46 Lab Results Active Medications Acetaminophen (Tylenol) 650 mg PO Q6HR PRN PRN Reason: Mild Pain (1-3) Stop: 11/18/16 12:57 Albuterol/Ipratropium (Duoneb) 3 ml IH [id number] CECILIA PRN Reason: Protocol Stop: 11/18/16 16:01 Last Admin: 05/21/16 07:50 Dose: 3 ml Aspirin (Aspirin) 81 mg PO DAILY [facility] Stop: 11/19/16 09:01 Last Admin: 05/21/16 08:45 Dose: 81 mg Budesonide/Formoterol Fumarate (Symbicort) 2 puff IH BIDR CEC[facility] PRN Reason: Protocol Stop: 11/18/16 22:01 Last Admin: 05/21/16 07:50 Dose: 2 puff Heparin Sodium (Porcine) (Heparin) 5,000 unit SQ Q12HCO [facility] Stop: 11/18/16 18:01 Last Admin: 05/21/16 05:35 Dose: 5,000 unit Diltiazem HCl 125 mg/ Dextrose 125 mls @ 2.5 mls/hr IVC .Q24H [facility] PRN Reason: 2.5 MG/HR Stop: 11/18/16 12:01 Last Admin: 05/20/16 11:32 Dose: Not Given Cefepime HCl 1,000 mg/ (Dextrose) 100 mls @ 200 mls/hr IVPB Q12HR [facility] Stop: 11/19/16 10:04 Last Admin: 05/21/16 05:34 Dose: 200 mls/hr Levofloxacin/Dextrose (Levaquin 750mg/150 Ml) 750 mg in 150 mls @ 100 mls/hr IVPB Q48H [facility] PRN Reason: Protocol Stop: 11/19/16 11:01 Last Admin: 05/20/16 11:32 Dose: 100 mls/hr Sodium Chloride (0.9 % Sodium Chloride) 1,000 mls @ 60 mls/hr IVC .[id number] [facility] Stop: 11/19/16 10:16 Last Admin: 05/20/16 11:31 Dose: 60 mls/hr Levalbuterol HCl (Xopenex) 1.25 mg IH Q2HR PRN PRN Reason: Dyspnea Stop: 11/19/16 16:37 Losartan Potassium (Cozaar) 50 mg PO DAILY [facility] Stop: 11/19/16 09:01 Last Admin: 05/21/16 08:45 Dose: 50 mg Methylprednisolone (Solu-Medrol) 80 mg IVP Q8HR [facility] Stop: 11/18/16 16:01 Last Admin: 05/21/16 08:46 Dose: 80 mg Metoprolol Succinate (Toprol Xl) 100 mg PO DAILY [facility] Stop: 11/20/16 09:01 Last Admin: 05/21/16 08:46 Dose: 100 mg Morphine Sulfate (Morphine Sulfate) 2 mg IVP Q4HR PRN PRN Reason: Severe Pain (7-10) Stop: 11/18/16 12:57 Last Admin: 05/21/16 00:49 Dose: 2 mg Naloxone HCl (Narcan) 0.4 mg IVP Q2MIN PRN PRN Reason: Opioid Reversal Stop: 11/18/16 12:57 Ondansetron HCl (Zofran) 4 mg IVP Q8HR PRN PRN Reason: Nausea And Vomiting Stop: 11/18/16 12:57 Last Admin: 05/19/16 14:55 Dose: 4 mg Oxycodone HCl (Roxicodone) 10 mg PO Q6H PRN PRN Reason: Moderate Pain Stop: 11/18/16 12:58 Ranolazine (Ranexa) 500 mg PO DAILY [facility] Stop: 11/19/16 09:01 Last Admin: 05/21/16 08:45 Dose: 500 mg Simvastatin (Zocor) 20 mg PO HS [facility] PRN Reason: Protocol Stop: 11/18/16 21:01 Last Admin: 05/20/16 22:09 Dose: 20 mg Tamsulosin HCl (Flomax) 0.4 mg PO HS [facility] PRN Reason: Protocol Stop: 11/18/16 21:01 Last Admin: 05/20/16 22:09 Dose: 0.4 mg Zolpidem Tartrate (Ambien) 10 mg PO HS [facility] PRN Reason: Protocol Stop: 11/18/16 21:01 Last Admin: 05/20/16 22:09 Dose: 10 mg Laboratory Tests 12/20/15 12/20/15 03/06/16 06:26 06:26 16:03 WBC Hgb 9.0 L 9.4 L Hct Plt Count 113 L 169 Potassium Creatinine 0.97 Troponin I B-Natriuretic Peptide 03/06/16 05/19/16 05/19/16 16:03 10:52 10:52 WBC 11.2 H Hgb 9.1 L Hct 32.0 L Plt Count 124 L Potassium 3.8 Creatinine 1.29 H 1.11 Troponin I B-Natriuretic Peptide 05/19/16 05/19/16 05/19/16 10:52 10:52 15:59 WBC Hgb Hct Plt Count Potassium Creatinine Troponin I 0.04 H* 0.07 H* B-Natriuretic Peptide 155 H 05/19/16 05/20/16 05/20/16 22:21 07:19 07:19 WBC Hgb 7.8 L Hct Plt Count 92 L Potassium Creatinine 1.77 H D Troponin I 0.05 H* B-Natriuretic Peptide 05/21/16 05/21/16 03:46 03:46 WBC Hgb 7.2 L Hct 25.6 L Plt Count 100 L Potassium 4.1 Creatinine 1.67 H Troponin I B-Natriuretic Peptide - Imaging and Cardiology Chest Xray: report reviewed Echo: pending - EKG Interpretation EKG results cardiology: other (Telemetry reviewed with average heart rate last 12 hours 107, sinus tachycardia. PVCs and PACs noted.) Consult Discharge Plan - Plan Referrals: Jaspreet Bal Jr, MD [Primary Care Provider] -
--- NOTE | 2016-05-21 10:11 | ECHO - Doppler Report ---
Echocardiogram Name: Ayden Munroe Date of Study: 05/21/2016 Date: 1935 Ht: 71.0 in Medical Record#: [id number] Age: 81 Wt: 233.0 lb Gender: Male BSA: 2.25 Order #: [id number] Location: [facility] Room #: [id number] Reading Physician: Lyndsey Castillo DO Senior Technical Program Manager: Jeff Hu RDCS Ordering Physician: Martinez James MD Primary Physician: Jaspreet Bal MD Indications: Congestive heart failure Impressions: LVEF 50%. Indeterminate left venticular diastoic function Atypical septal motion. Normal right ventricular size and function. Mild mitral regurgitation. Borderline evidence for mild pulmonary hypertension. Left Ventricular Wall Motion: Rest Echo Findings The mid inferior lateral and basal inferior lateral de la cruz were not visualized. All other wall segments showed normal motion. Findings: Study Quality * Technically adequate exam. ECG Findings * Atrial fibrillation. Left Ventricle * Indeterminate diastolic function. * LVEF 50%. * Normal LV size. Left Atrium * Normal left atrial size. Mitral Valve * Normal mitral valve structure. * No mitral stenosis. * Mild mitral regurgitation. Aortic Valve * No aortic regurgitation. * Aortic valve not well visualized. * No aortic stenosis. Tricuspid Valve * Tricuspid valve not well visualized. * Trace tricuspid regurgitation. * Estimated RA pressure is 3 mmHg. * Estimated RVSP is 35 mmHg. * Borderline evidence for mild pulmonary hypertension. Pulmonic Valve * Pulmonic valve is not well visualized. * No pulmonic stenosis. * No pulmonic regurgitation. Pulmonary Artery * Pulmonary artery not well visualized. Right Ventricle * Normal right ventricular structure and function. Right Atrium * Normal right atrial size. Pericardium * There is no pericardial effusion present. Interatrial Septum * No evidence of PFO by color Doppler. Device lead * A device lead was visualized in the right atrium and right ventricle. IVC * Normal IVC dimensions and inspiratory collapse. Aorta * Normally sized aortic root. History Hypertension Hypercholesteremia Family History of CAD History of CAD/PTCA Myocardial Infarction Coronary Artery Bypass Graft Congestive Heart Failure Pacer/ICD Implant Valvular Disease 02/28/15 a Previous Echo was performed. Measurements: BP: 116/ 61 2D Normal Values IVSd: .95 cm 0.6 - 1.0 cm LVIDd: 5.54 cm 3.7 - 5.6 cm LVPWd: .94 cm 0.6 - 1.1 cm LVIDs: 4.70 cm 1.5 - 3.6 cm AO: 2.40 cm < 4.0 cm LA: 4.00 cm 2.0 - 4.0cm %FS: 15.20 cm >25 % LA volume: 59 Mitral Valve Peak E:1.14 m/sec Peak A:1.21 m/sec E/A Ratio:0.9 Peak E' Lat Mariano:8.7 cm/s Peak E' Med Mariano:8.5 cm/s E/E' Lat Ratio:13.1 E/E' Med Ratio:13.4 Tricuspid Valve TV Regurg Peak Grad: 32.00mmHg TV Regurg Peak Mariano: 2.83m/sec Updated by Lyndsey Castillo on 05/21/2016 10:04:22 AM electronically signed on 05/21/2016 10:05:32 AM with status of Final Wall Motion Stallings: 1=Normal, 2=Hypokinesis, 3=Akinesis, 4=Dyskinesis, 5=Aneurysmal, 6=Hyperkinetic, X=Not Visualized (Blank)=Missing
[2016-05-21] MEDS: Diltiazem CD (24hr) 120 MG CAPSULE PO SCH (12:27)
[2016-05-21] MEDS ORDERED: *HR* Morphine 2 MG/ML SYRINGE IVP PRN (15:07)
--- NOTE | 2016-05-21 15:08 | Palliative Progress Note ---
Date of Encounter: 05/21/16 Time of Encounter: 15:04 - Assessment and plan (1) Cancer associated pain Current Visit: No Status: Acute Assessment and plan: Mr. Munroe reports minimal relief of pain when taking oxycodone in the past. He does report more relief when utilizing tramadol. We will discontinue oxycodone and replaced with home dose of tramadol. Use tramadol for moderate to severe pain. If pain does not respond to tramadol, may utilize morphine as needed. Continue to monitor. (2) Functional constipation Current Visit: No Status: Acute Assessment and plan: Mr. Munroe denies feelings of constipation at this time. He declines the need for laxative as the patient had loose stools prior to admission likely related to antibiotics. (3) Goals of care, counseling/discussion Current Visit: No Status: Acute Assessment and plan: Mr. Munroe is willing to consider home health options if medically indicated. social services specialist following for discharge needs. Continue to monitor. ICD remains active per patient request. - Time Spent With Patient Total time spent is greater than 50% in coordination of care (as documented) at patient's floor/unit and/or counseling patient: - Subjective Interval history: Mr. Munroe is lying in bed, with friend at bedside. He denies pain, , nausea , vomiting, constipation. He reports breathing is at baseline. - Constitutional Vitals: Abnormal lab results RBC 3.16 M/mcL (4.19-5.50) L 05/21/16 03:46 Hgb 7.2 g/dL (12.9-16.9) L 05/21/16 03:46 Hct 25.6 % (37.5-50.1) L 05/21/16 03:46 MCV 81.0 fL (83.0-100.0) L 05/21/16 03:46 MCH 22.8 pg (28.0-33.3) L 05/21/16 03:46 MCHC 28.1 g/dL (31.6-35.5) L 05/21/16 03:46 RDW 16.2 % (11.5-14.5) H 05/21/16 03:46 Plt Count 100 K/mcL (140-400) L 05/21/16 03:46 Lymphocytes # 0.1 K/mcL (0.6-4.6) L 05/20/16 07:19 Toxic Granulation Present (Not Present) A 05/20/16 07:19 Platelet Estimate Slight Decrease (Normal) L 05/20/16 07:19 Immature Plt Fraction 6.2 % (1.1-6.1) H 05/21/16 03:46 Polychromasia 1+ (Not Present) A 05/20/16 07:19 Hypochromasia Present (Not Present) A 05/20/16 07:19 Anisocytosis 1+ (Not Present) A 05/20/16 07:19 Microcytosis Present (Not Present) A 05/20/16 07:19 Macrocytosis Present (Not Present) A 05/19/16 10:52 Target Cells 1+ (Not Present) A 05/19/16 10:52 Ovalocytes 1+ (Not Present) A 05/20/16 07:19 BUN 34 mg/dL (8-26) H 05/21/16 03:46 Creatinine 1.67 mg/dL (0.72-1.25) H 05/21/16 03:46 Est GFR ( Amer) 48 (> 60) L 05/21/16 03:46 Est GFR (Non-Af Amer) 40 (> 60) L 05/21/16 03:46 Glucose 169 mg/dL (70-99) H 05/21/16 03:46 Troponin I 0.05 ng/mL (0-0.03) H* 05/19/16 22:21 B-Natriuretic Peptide 155 pg/mL (0-100) H 05/19/16 10:52 General appearance: Present: cooperative, no acute distress, obese Exam: 81-year-old male patient, appearance age-appropriate, smiling/laughing and interactive - Eye Eye exam: Present: EOMI - ENT ENT exam: Present: mucous membranes moist - Respiratory Respiratory exam: Present: wheezes. Absent: accessory muscle use, decreased breath sounds, respiratory distress - Cardiovascular Cardiovascular exam: Present: RRR - GI/Abdominal GI/Abdominal exam: Present: normal bowel sounds, soft. Absent: tenderness - Extremities Exam Extremities exam: Absent: pedal edema - Neurological Exam Neurological exam: Present: alert, oriented X3, no focal deficits, strengths equal and symetr throughout - Psychiatric Psychiatric exam: Absent: agitated, anxious - Skin Skin exam: Present: dry, warm Palliative Quality Palliative Quality: Screen for Code Status: Yes, Screen for Goals of Care: Yes, Screen for Pain: Yes, If Pain Regimen Started, Initiate Bowel Regimen: Yes, Screen for Nausea/Vomitting: Yes Code Status: 05/20/16 14:20 DNR [Resuscitation Status: Active] [RES] Routine Comment: Resuscitation Status: DNR-Comfort Care - Labs CBC & Chem 7: 05/21/16 03:46 05/21/16 03:46 Labs: Laboratory Results - last 24 hr 05/21/16 05/21/16 03:46 03:46 WBC 5.5 RBC 3.16 L Hgb 7.2 L Hct 25.6 L MCV 81.0 L MCH 22.8 L MCHC 28.1 L RDW 16.2 H Plt Count 100 L MPV 11.5 Immature Plt Fraction 6.2 H Sodium 139 Potassium 4.1 Chloride 102 Carbon Dioxide 27 BUN 34 H Creatinine 1.67 H Est GFR ( Amer) 48 L Est GFR (Non-Af Amer) 40 L BUN/Creatinine Ratio 20 Glucose 169 H Calculated Osmolality 300 Calcium 9.2 Consult Discharge Plan - Plan Referrals: Jaspreet Bal Jr, MD [Primary Care Provider] -
--- NOTE | 2016-05-21 15:10 | Internal Med Progress Note ---
Date of Encounter: 05/21/16 Time of Encounter: 15:06 - Assessment and plan (1) Acute and chronic respiratory failure with hypoxia Current Visit: Yes Status: Acute Assessment and plan: Acute on chronic hypoxic respiratory failure secondary to acute COPD exacerbation due to community-acquired pneumonia suspicious for gram-negative pneumonia Discontinue doxycycline and discontinue vancomycin and Zosyn due to acute renal failure continue Levaquin and cefepime Day 2 Follow blood cultures, continue Solu-Medrol, oxygen and inhalers (2) Atrial fibrillation with RVR Current Visit: Yes Status: Acute Assessment and plan: Like his secondary to community-acquired pneumonia and dehydration Cardizem drip has been discontinued, may resume if becomes tachycardic again. Cardiology recommended to continue cardizem 120 mg daily Continue metoprolol echocardiogram EF 50%, mild MR indeterminate diastolic function (3) Community acquired pneumonia Current Visit: No Status: Acute (4) Thrombocytopenia Current Visit: No Status: Chronic Assessment and plan: Likely secondary to infection (5) Right lower lobe lung mass Current Visit: No Status: Chronic Assessment and plan: History of lung cancer, the patient decided not to receive treatment next Consulted palliative care (6) Cardiomyopathy Current Visit: No Status: Chronic Assessment and plan: Status post AICD Qualifiers: Qualified Code(s): I25.5 - Ischemic cardiomyopathy (7) AICD (automatic cardioverter/defibrillator) present Current Visit: No Status: Chronic (8) Pulmonary nodule Current Visit: No Status: Acute (9) COPD exacerbation Current Visit: No Status: Acute (10) Elevated troponin Current Visit: No Status: Acute Assessment and plan: Likely secondary to demand ischemia (11) Chronic combined systolic and diastolic congestive heart failure Current Visit: Yes Status: Chronic Assessment and plan: Ejection fraction of 40% on 2015 Hold Lasix (12) ARF (acute renal failure) Current Visit: Yes Status: Acute Assessment and plan: Acute renal failure likely secondary to infection Start mild hydration, hold Lasix Qualifiers: Qualified Code(s): N17.9 - Acute kidney failure, unspecified - Time Spent With Patient Acute blood loss anemia (symptomatic) , unclear etiology with history of gastric ulcers. No active bleeding, start Protonix IV monitor CBC, consider GI consult if hemocult is positive. (No BMs since yesterday) transfuse 1 unit fo RBCs due to symptomatic anemia - Subjective Interval history: The patient is less short of breath, feeling slightly better than yesterday, denies any chest pain, no abdominal pain, no dysuria, no diarrhea. Has been bringing up yellowish phlegm, no fevers. Denies dark stool or bleeding - Constitutional Vitals: Temp Pulse Resp BP Pulse Ox 98.6 F 97 18 111/56 96 05/21/16 11:30 05/21/16 11:30 05/21/16 12:01 05/21/16 12:01 05/21/16 12:01 General appearance: Present: cooperative, A&O X 3, answers questions appropriately - Head Head exam: Present: atraumatic, normocephalic - Eye Eye exam: Present: PERRL, conjuntiva pink, sclera anicteric Pupils: Present: PERRL - Neck Neck exam general surgery: Present: supple, trachea midline. Absent: lymphadenopathy - Respiratory Respiratory exam: Present: CTAB, rales, wheezes (righe base crackles and wheezing). Absent: accessory muscle use, rhonchi - Cardiovascular Cardiovascular exam: Present: RRR, +S1, +S2, tachycardia. Absent: diastolic murmur, gallop, rubs, systolic murmur - GI/Abdominal GI/Abdominal exam: Present: normal bowel sounds, soft, no peritoneal signs. Absent: distended, tenderness - Extremities Exam Extremities exam: Present: pedal edema (+1 pitting edema in both lower extremities), warm, radial pulses palpable and symetrical. Absent: calf tenderness, cyanotic - Neurological Exam Neurological exam: Present: CN II-XII intact, oriented X3, no focal deficits. Absent: pronater drift, facial droop, speech deficit - Skin Skin exam: Present: dry, intact Internal Medicine: Result - Labs CBC & Chem 7: 05/21/16 03:46 05/21/16 03:46 Labs: Short CBC 05/21/16 Range/Units 03:46 WBC 5.5 (4.3-11.1) K/mcL Hgb 7.2 L (12.9-16.9) g/dL Hct 25.6 L (37.5-50.1) % Plt Count 100 L (140-400) K/mcL BMP 05/21/16 03:46 Sodium 139 Potassium 4.1 Chloride 102 Carbon Dioxide 27 BUN 34 H Creatinine 1.67 H Glucose 169 H Calcium 9.2 Consult Discharge Plan - Plan Referrals: Jaspreet Bal Jr, MD [Primary Care Provider] -
[2016-05-21] MEDS ORDERED: 0.9 % Sodium Chloride 250 ML ONE (15:52)
[2016-05-21] MEDS: MethylPREDNISolone 40 MG/ML VIAL IVP SCH (20:10)
[2016-05-21] MEDS: Pantoprazole 40 MG VIAL IV SCH (20:10)
[2016-05-21] MEDS: traMADol 50 MG TABLET PO PRN (20:32)
[2016-05-22] MEDS: Ipratropium/Albuterol Neb 3 ML IH SCH ×7 (00:22→23:07)
[2016-05-22] MEDS: traMADol 50 MG TABLET PO PRN ×2 (04:44→23:56)
[2016-05-22] MEDS: Cefepime HCl 1,000 MG in D5% in Water (Mini-Bag+) 100 ML IVPB SCH ×2 (04:45→17:54)
[2016-05-22 06:02] LABS: Hematocrit 27.3 % (37.5-50.1); Hemoglobin 7.9 g/dL (12.9-16.9); Immature Platelets 7.5 % (1.1-6.1); Mean Corpuscular HGB Conc 28.9 g/dL (31.6-35.5); Mean Corpuscular Hemoglobin 23.7 pg (28.0-33.3); Mean Corpuscular Volume 81.7 fL (83.0-100.0); Mean Platelet Volume 11.5 fL (9.4-12.4); Red Blood Count 3.34 M/mcL (4.19-5.50)
[2016-05-22 06:16] LABS: Potassium 4.8 mEq/L (3.5-4.5)
[2016-05-22] MEDS: Budesonide/Formoterol 160/4.5 MDI IH SCH ×2 (07:46→20:11)
[2016-05-22] MEDS: Ranolazine 500 MG TAB.ER.12H PO SCH (09:09)
[2016-05-22] MEDS: Aspirin 81 MG TAB.CHEW PO SCH (09:10)
[2016-05-22] MEDS: Metoprolol XL (24 HR) Succ 50 MG TAB.ER.24H PO SCH (09:10)
[2016-05-22] MEDS: Diltiazem CD (24hr) 120 MG CAPSULE PO SCH (09:10)
[2016-05-22] MEDS: MethylPREDNISolone 40 MG/ML VIAL IVP SCH ×3 (09:10→23:57)
[2016-05-22] MEDS: Pantoprazole 40 MG VIAL IV SCH ×2 (09:11→21:01)
--- NOTE | 2016-05-22 10:04 | Palliative Progress Note ---
Date of Encounter: 05/22/16 Time of Encounter: 10:00 - Assessment and plan (1) Dyspnea Current Visit: Yes Status: Acute Assessment and plan: Continue with IV atb/bronchodilators/supportive oxygen. Still with shortness of breath today. Qualifiers: Dyspnea type: unspecified Qualified Code(s): R06.00 - Dyspnea, unspecified (2) Generalized pain Current Visit: Yes Status: Acute Assessment and plan: Patient received Tramadol last pm for pain, states not really effective. States he usually takes 2 Tramadol at home instead of 1. Will increase to 100mg every 6 hours PRN and monitor. He struggles with nausea with Oxycodone. (3) Counseling regarding advanced care planning and goals of care Current Visit: Yes Status: Acute Assessment and plan: DNRCC - discussion again yesterday re: AICD. Patient not ready to have this de- activated. Independent at home and denying need for homecare. Has privately hired branch operations manager. (4) Lung cancer Current Visit: No Status: Chronic Qualifiers: Laterality: right Lung location: unspecified part of lung Qualified Code( s): C34.91 - Malignant neoplasm of unspecified part of right bronchus or lung (5) Community acquired pneumonia Current Visit: No Status: Acute - Time Spent With Patient Total time spent is greater than 50% in coordination of care (as documented) at patient's floor/unit and/or counseling patient: - Subjective Interval history: Patient resting quietly , reading paper. Increased shortness of breath with conversation. States productive cough yesterday, but nothing today. C/o some chronic back pain. States has been up moving around room. Asked for warm prune juice to assist with BM. No family present. - Constitutional Vitals: Abnormal lab results RBC 3.34 M/mcL (4.19-5.50) L 05/22/16 04:31 Hgb 7.9 g/dL (12.9-16.9) L 05/22/16 04:31 Hct 27.3 % (37.5-50.1) L 05/22/16 04:31 MCV 81.7 fL (83.0-100.0) L 05/22/16 04:31 MCH 23.7 pg (28.0-33.3) L 05/22/16 04:31 MCHC 28.9 g/dL (31.6-35.5) L 05/22/16 04:31 RDW 16.0 % (11.5-14.5) H 05/22/16 04:31 Plt Count 98 K/mcL (140-400) L 05/22/16 04:31 Lymphocytes # 0.1 K/mcL (0.6-4.6) L 05/20/16 07:19 Toxic Granulation Present (Not Present) A 05/20/16 07:19 Platelet Estimate Slight Decrease (Normal) L 05/20/16 07:19 Immature Plt Fraction 7.5 % (1.1-6.1) H 05/22/16 04:31 Polychromasia 1+ (Not Present) A 05/20/16 07:19 Hypochromasia Present (Not Present) A 05/20/16 07:19 Anisocytosis 1+ (Not Present) A 05/20/16 07:19 Microcytosis Present (Not Present) A 05/20/16 07:19 Macrocytosis Present (Not Present) A 05/19/16 10:52 Target Cells 1+ (Not Present) A 05/19/16 10:52 Ovalocytes 1+ (Not Present) A 05/20/16 07:19 Potassium 4.8 mEq/L (3.5-4.5) H 05/22/16 04:31 BUN 40 mg/dL (8-26) H 05/22/16 04:31 Creatinine 1.47 mg/dL (0.72-1.25) H 05/22/16 04:31 Est GFR ( Amer) 56 (> 60) L 05/22/16 04:31 Est GFR (Non-Af Amer) 46 (> 60) L 05/22/16 04:31 BUN/Creatinine Ratio 27 (6-26) H 05/22/16 04:31 Glucose 225 mg/dL (70-99) H 05/22/16 04:31 Calculated Osmolality 307 (280-300) H 05/22/16 04:31 Troponin I 0.05 ng/mL (0-0.03) H* 05/19/16 22:21 B-Natriuretic Peptide 155 pg/mL (0-100) H 05/19/16 10:52 General appearance: Present: mild distress - Respiratory Additional comments: Wheezed and scattered rhonchi throughout - Cardiovascular Cardiovascular exam: Present: tachycardia - GI/Abdominal GI/Abdominal exam: Present: normal bowel sounds, soft - Extremities Exam Extremities exam: Present: normal capillary refill, normal inspection - Neurological Exam Neurological exam: Present: alert, oriented X3, strengths equal and symetr throughout - Skin Skin exam: Present: dry, pallor, warm Palliative Quality Palliative Quality: Screen for Code Status: Yes, Screen for Goals of Care: Yes, Screen for Pain: Yes, If Pain Regimen Started, Initiate Bowel Regimen: Yes, Screen for Nausea/Vomitting: Yes Code Status: 05/20/16 14:20 DNR [Resuscitation Status: Active] [RES] Routine Comment: Resuscitation Status: DNR-Comfort Care - Labs CBC & Chem 7: 05/22/16 04:31 05/22/16 04:31 Labs: Laboratory Results - last 24 hr 05/21/16 05/22/16 05/22/16 14:28 04:31 04:31 WBC 4.3 RBC 3.34 L Hgb 7.9 L Hct 27.3 L MCV 81.7 L MCH 23.7 L MCHC 28.9 L RDW 16.0 H Plt Count 98 L MPV 11.5 Immature Plt Fraction 7.5 H Sodium 140 Potassium 4.8 H Chloride 104 Carbon Dioxide 26 BUN 40 H Creatinine 1.47 H Est GFR ( Amer) 56 L Est GFR (Non-Af Amer) 46 L BUN/Creatinine Ratio 27 H Glucose 225 H Calculated Osmolality 307 H Calcium 9.0 Blood Type A NEGATIVE Antibody Screen NEGATIVE Crossmatch See Detail Consult Discharge Plan - Plan Referrals: Jaspreet Bal Jr, MD [Primary Care Provider] -
[2016-05-22] MEDS: Levofloxacin 750 MG/150 ML 750 MG/150 ML BAG IVPB SCH (11:52)
--- NOTE | 2016-05-22 12:06 | Venous Imaging Report ---
LE Venous Duplex Patient Name:Ayden Munroe Order Number:[id number] Procedure Date:05/21/2016 Date:6Age:81 yrs Gender:Male Location:[facility] Room #: [id number] Talent Development Director:Katt Silver Referring MD:Martinez James MD research laboratory manager:Jaspreet Bal MD Reading MD:Luiz Willams MD Primary Indications:Swelling Secondary Indications: Risk Factors Yes/No Hx of DVT Impressions: Normal bilateral lower extremity deep and superficial venous exam. Findings Venous Duplex Results: Right: The right peroneal vein was not well visualized. Left: The left peroneal vein was not well visualized. Lower Extremity Venous Duplex Side Vein Compress Spontaneous Flow Augment Diameter (cm) Depth (cm) Right Distal Iliac Normal Yes Phasic Yes Right Common Femoral Normal Yes Phasic Yes Right Superficial Femoral Normal Yes Phasic Yes Right Popliteal Normal Yes Phasic Yes Right Posterior Tibial Normal Yes Phasic Yes Right Peroneal Normal Yes Phasic Yes Right Saphenofemoral [place] Normal Yes Phasic Yes Right Great Saphenous Normal Yes Phasic Yes Right Lesser Saphenous Normal Yes Phasic Yes Left Distal Iliac Normal Yes Phasic Yes Left Common Femoral Normal Yes Phasic Yes Left Superficial Femoral Normal Yes Phasic Yes Left Popliteal Normal Yes Phasic Yes Left Posterior Tibial Normal Yes Phasic Yes Left Peroneal Normal Yes Phasic Yes Left Saphenofemoral [place] Normal Yes Phasic Yes Left Great Saphenous Normal Yes Phasic Yes Left Lesser Saphenous Normal Yes Phasic Yes Updated by Luiz Willams MD on 05/22/2016 12:02:08 PM electronically signed on 05/22/2016 12:02:37 PM with status of Final
[2016-05-22 17:26] LABS: Bilirubin,Urine Negative (Negative); Blood,Urine Large (Negative); Clarity,Urine Cloudy (Clear); Color,Urine Yellow (Yellow); Glucose,Urine (UA) Normal (Normal); Ketones,Urine Negative (Negative); Leukocyte Esterase,Urine Negative (Negative); Nitrite,Urine Negative (Negative); PH,Urine 5.5 pH Units (5.0-8.0); Protein,Urine Trace mg/dL (Neg-Trace); Specific Gravity,Urine 1.024 (1.010-1.025); Urobilinogen,Urine Normal (Normal)
[2016-05-22 17:29] LABS: Bacteria,Urine None Seen per hpf (None-Few); Squamous Epithelial Cell,Urine Many per lpf (None-Few)
[2016-05-22 17:49] LABS: Hyaline Casts,Urine Moderate per lpf (None-Few)
[2016-05-22 17:52] LABS: Mucus,Urine Moderate (Few); RBC,Urine 30-50 per hpf (0-3)
[2016-05-22 17:53] LABS: Triple Phosphate Crystal,Urine Present
--- NOTE | 2016-05-22 19:27 | Internal Med Progress Note ---
Date of Encounter: 05/22/16 Time of Encounter: 16:00 - Assessment and plan (1) Healthcare associated bacterial pneumonia Current Visit: Yes Status: Acute Assessment and plan: We will continue with cefepime and Levaquin. She does not need MRSA coverage at this point. He continues to improve. We will de-escalate tomorrow according to culture and sensitivities. Continue oxygen by nasal cannula. (2) Anemia due to GI blood loss Current Visit: Yes Status: Acute Assessment and plan: I will consult GI. I have discussed the case with GI. Plan for EGD tomorrow. (3) Atrial fibrillation with RVR Current Visit: Yes Status: Acute Assessment and plan: Like his secondary to community-acquired pneumonia and dehydration Cardizem drip has been discontinued, may resume if becomes tachycardic again. Cardiology recommended to continue cardizem 120 mg daily Continue metoprolol echocardiogram EF 50%, mild MR indeterminate diastolic function (4) Chronic combined systolic and diastolic congestive heart failure Current Visit: Yes Status: Chronic Assessment and plan: Ejection fraction of 40% on 2015 Hold Lasix (5) Acute and chronic respiratory failure with hypoxia Current Visit: Yes Status: Acute Assessment and plan: Acute on chronic hypoxic respiratory failure secondary to acute COPD exacerbation due to community-acquired pneumonia suspicious for gram-negative pneumonia Stopped doxycycline and discontinue vancomycin and Zosyn due to acute renal failure continue Levaquin and cefepime Day 3 and planned to de-escalate tomorrow according to sensitivities. Follow blood cultures, continue Solu-Medrol, oxygen and inhalers - Subjective Interval history: Patient reports improvement in his shortness of breath over the last 24 hours, better with supplemental oxygen. Reports associated dry cough. Reports constipation having not had a bowel movement for the last 3 days. Denies nausea or vomiting rectal bleed, reports lower extremity swelling. - Constitutional Vitals: Temp Pulse Resp BP Pulse Ox 97.7 F 67 16 106/65 95 05/22/16 16:16 05/22/16 16:16 05/22/16 16:51 05/22/16 16:16 05/22/16 16:51 General appearance: Present: cooperative, A&O X 3, answers questions appropriately - Respiratory Respiratory exam: Present: CTAB. Absent: accessory muscle use, rales, rhonchi, wheezes - Cardiovascular Cardiovascular exam: Present: irregular rhythm, +S1, +S2. Absent: diastolic murmur, gallop, rubs, systolic murmur - GI/Abdominal GI/Abdominal exam: Present: normal bowel sounds, soft, no peritoneal signs. Absent: distended, tenderness - Extremities Exam Extremities exam: Present: pedal edema, warm, radial pulses palpable and symetrical. Absent: calf tenderness, cyanotic - Neurological Exam Neurological exam: Present: CN II-XII intact, oriented X3, no focal deficits. Absent: pronater drift, facial droop, speech deficit - Skin Skin exam: Present: dry, intact Internal Medicine: Result - Labs CBC & Chem 7: 05/22/16 04:31 05/22/16 04:31 Labs: Short CBC 05/22/16 Range/Units 04:31 WBC 4.3 (4.3-11.1) K/mcL Hgb 7.9 L (12.9-16.9) g/dL Hct 27.3 L (37.5-50.1) % Plt Count 98 L (140-400) K/mcL BMP 05/22/16 04:31 Sodium 140 Potassium 4.8 H Chloride 104 Carbon Dioxide 26 BUN 40 H Creatinine 1.47 H Glucose 225 H Calcium 9.0 Urine 05/22/16 Range/Units 17:00 Urine Color Yellow (Yellow) Urine Clarity Cloudy A (Clear) Urine pH 5.5 (5.0-8.0) pH Units Ur Specific [place] 1.024 (1.010-1.025) Urine Protein Trace (Neg-Trace) mg/dL Urine Glucose (UA) Normal (Normal) mg/dL Consult Discharge Plan - Plan Referrals: Jaspreet Bal Jr, MD [Primary Care Provider] -
[2016-05-22] MEDS: Sennosides/Docusate Sodium TABLET PO SCH (21:02)
[2016-05-22] MEDS: Furosemide 40 MG TABLET PO SCH (21:06)
[2016-05-23] MEDS: Ipratropium/Albuterol Neb 3 ML IH SCH ×4 (03:53→15:55)
[2016-05-23] MEDS: Cefepime HCl 1,000 MG in D5% in Water (Mini-Bag+) 100 ML IVPB SCH ×2 (04:55→17:16)
[2016-05-23 05:20] LABS: Immature Granulocytes % 0.9 % (0-4)
[2016-05-23 05:22] LABS: Hematocrit 29.8 % (37.5-50.1); Hemoglobin 8.7 g/dL (12.9-16.9); Immature Platelets 5.7 % (1.1-6.1); Lymphocytes # 0.1 K/mcL (0.6-4.6); Lymphocytes % 2.4 %; Mean Corpuscular HGB Conc 29.2 g/dL (31.6-35.5); Mean Corpuscular Hemoglobin 23.8 pg (28.0-33.3); Mean Corpuscular Volume 81.6 fL (83.0-100.0); Mean Platelet Volume 10.8 fL (9.4-12.4); Monocytes # 0.1 K/mcL (0.0-1.3); Monocytes % 2.4 %; Neutrophils # 3.1 K/mcL (1.6-8.9); Red Blood Count 3.65 M/mcL (4.19-5.50); Red Cell Distribution Width 16.3 % (11.5-14.5); Segmented Neutrophils % 94.3 %
[2016-05-23 05:23] LABS: Platelet Count 98 K/mcL (140-400)
[2016-05-23 05:49] LABS: Hypersegmented Neutrophils Present (Not Present); Platelet Estimate Decreased (Normal); Toxic Granulation Present (Not Present)
[2016-05-23 06:18] LABS: Calcium 9.4 mg/dL (8.6-10.8); Magnesium 2.1 mg/dL (1.6-2.6); Potassium 4.5 mEq/L (3.5-4.5)
[2016-05-23] MEDS: Budesonide/Formoterol 160/4.5 MDI IH SCH (07:47)
[2016-05-23] MEDS: MethylPREDNISolone 40 MG/ML VIAL IVP SCH ×3 (11:13→23:32)
[2016-05-23] MEDS: Pantoprazole 40 MG VIAL IV SCH ×2 (11:13→21:16)
--- NOTE | 2016-05-23 11:44 | Gastroenterology Consult Note ---
<Perez Boyd - Last Filed: 05/23/16 11:42> Date of Encounter: 05/23/16 Time of Encounter: 10:30 - Assessment and plan (1) Anemia Status: Resolved Assessment and plan: Hgb 9.1 on admission and dropped to 7.2 on 05/21. He received one unit PRBC and Hgb 8.7 this AM. Continue to monitor CBC and transfuse PRBC as needed. No hematemesis, melena, or hematochezia reported. Plan for EGD today to r/o esophagitis, gastritis, duodenitis, PUD, MW tear, or AVM. If EGD negative, plan for colonoscopy tomorrow. Qualifiers: Anemia type: unspecified type Qualified Code(s): D64.9 - Anemia, unspecified (2) Thrombocytopenia Status: Chronic Assessment and plan: Check LFTs and liver ultrasound. (3) Functional constipation Status: Acute Assessment and plan: Recommend daily fiber supplement and Miralax up to BID. (4) Lung cancer Status: Chronic Assessment and plan: Pt declined treatment. Qualifiers: Laterality: right Lung location: unspecified part of lung Qualified Code( s): C34.91 - Malignant neoplasm of unspecified part of right bronchus or lung (5) COPD exacerbation Status: Acute (6) AICD (automatic cardioverter/defibrillator) present Status: Chronic - Time Spent With Patient Total time spent is greater than 50% in coordination of care (as documented) at patient's floor/unit and/or counseling patient: GI History of Present Illness - Data of Consult Patient: new to practice Consult date: 05/23/16 Requesting Physician: Nhan Alan MD - Consult Narrative Reason for consult: Anemia History of present illness: Mr. Munroe is a 81 year old male with PMHx of arthritis, asthma, lung cancer , ischemic cardiomyopathy a/p ICD, COPD, CAD, CABG, CVA, GERD, HLD, HTN who was admitted with pneumonia and COPD exacerbation. SOB, cough, and chest pain have been on going for about 2 weeks. On admission, he was noted to be in Afib with RVR. He was given IV Cardizem and converted to NSR. Pt states he has lung cancer and has refused treatment. Pt was anemic on admission with Hgb 9.1 and dropped to 7.2 on 05/21, and Hgb is 8.7 this AM after receiving 1 unit. He reports not having BM for past 3 days. he denies nausea, vomiting, hematemesis, melena, or hematochezia. Procedures: Colonoscopy 05/14/2013 Dr. Miller with 10 tubular adenomas 7-8mm, recommended repeat in 1 year EGD 05/14/2013 Dr. Miller Gastritis NSAIDs: None Anticoagulation: None Past Med Surg Social Fam HX - Past Medical History Medical history: arthritis, asthma, cancer, cardiomyopathy, COPD, coronary artery disease, CVA, GERD, hyperlipidemia, hypertension, renal disease, other Psychiatric history: no psych history - Past Surgical History Surgical History: angioplasty/stent, cholecystectomy, coronary bypass (CABG), pacemaker/AICD, other - Social History Smoking Status: Former smoker Smokeless Tobacco Status: No Alcohol use: none Drug use: none - Family History Mother Living Status: - Gastrointestinal Gastrointestinal: Present: as per HPI - Constitutional Constitutional: as per HPI - EENT Eyes: as per HPI Ears: Present: as per HPI Nose, mouth and throat: Present: as per HPI - Cardiovascular Cardiovascular ROS: Present: as per HPI - Respiratory Respiratory IM: Present: as per HPI - Genitourinary Genitourinary: Absent: change in color, Urinary frequency - Neurological ROS Neurological GI: Present: as per HPI - Hematologic/Lymphatic Hematologic/Lymphatic pediatric: Present: as per HPI - Musculoskeletal Musculoskeletal ROS GI: Present: as per HPI - Integumentary Integumentary GI: Present: as per HPI - Psychiatric ROS Psychiatric GI: Present: as per HPI - Endocrine Endocrine IM: Present: as per HPI - Constitutional Vitals: Temp Pulse Resp BP Pulse Ox 97.5 F L 82 24 140/68 86 L 05/23/16 07:38 05/23/16 07:38 05/23/16 11:07 05/23/16 07:38 05/23/16 11:07 General appearance: Present: cooperative, A&O X 3, no acute distress, answers questions appropriately - Head Head exam: Present: atraumatic, normocephalic - Eye Eye exam: Present: scleral icterus - ENT ENT exam: Present: mucous membranes dry - Neck Neck exam general surgery: Present: normal inspection, trachea midline - Respiratory Respiratory exam: Present: rhonchi. Absent: CTAB - Cardiovascular Cardiovascular exam: Present: RRR, +S1, +S2 - GI/Abdominal GI/Abdominal exam: Present: normal bowel sounds, soft, no peritoneal signs. Absent: distended, firm, guarding, tenderness - Rectal Rectal exam: Present: deferred - Extremities Exam Extremities exam: Present: warm - Neurological Exam Neurological exam: Present: no focal deficits - Psychiatric Psychiatric exam: Present: normal affect, normal mood - Skin Skin exam: Present: dry, intact, warm. Absent: normal color (jaundice) Results - Labs CBC & Chem 7: 05/23/16 04:22 05/23/16 04:22 Labs: Last Result Calcium 9.4 mg/dL (8.6-10.8) 05/23/16 04:22 Iron 40 mcg/dL (65-175) L 05/22/16 04:31 % Saturation 11 % (20-55) L 05/22/16 04:31 Transferrin 263 mg/dL (174-364) 05/22/16 04:31 Ferritin 29 ng/ml (22-275) 05/22/16 04:31 Troponin I 0.05 ng/mL (0-0.03) H* 05/19/16 22:21 Entire Visit Hgb 8.7 g/dL (12.9-16.9) L 05/23/16 04:22 Hct 29.8 % (37.5-50.1) L 05/23/16 04:22 Ferritin 29 ng/ml (22-275) 05/22/16 04:31 Consult Discharge Plan - Plan Instructions: Diltiazem (By mouth), Prednisone (By mouth), Levofloxacin (By mouth), Ipratropium/Albuterol (By breathing), Rosuvastatin (By mouth), Heart Failure (DC), Atrial Fibrillation (DC), Acute Kidney Injury (DC), Chronic Obstructive Pulmonary Disease (DC), Anemia (GEN), Pneumonia (DC) Referrals: Jaspreet Bal Jr, MD [Primary Care Provider] - Kristie Brand CNP [Advanced Practice Nurse] - 05/29/16 9:40 am Prescriptions: Diltiazem CD (24hr) [Cardizem CD] 120 mg PO DAILY #30 cap.er.24h Ipratropium/Albuterol Neb [Duoneb] 3 ml IH TID #60 inhsol Levofloxacin 750 mg PO Q48H #2 tablet Metoprolol XL (24 HR) Succ [Toprol Xl] 100 mg PO DAILY #30 tab.er.24h PredniSONE 60 mg PO DAILY #20 tablet Rosuvastatin Calcium [Crestor] 10 mg PO DAILY #30 tablet <Noam Miller - Last Filed: 05/30/16 10:19> Time of Encounter: 13:00 - Time Spent With Patient Total time spent is greater than 50% in coordination of care (as documented) at patient's floor/unit and/or counseling patient: GI History of Present Illness - Data of Consult Requesting Physician: Nhan Alan MD - Consult Narrative History of present illness: Mr. Munroe is a 81 year old male - Constitutional Vitals: Temp Pulse Resp BP Pulse Ox 97.6 F 79 16 137/82 97 05/25/16 11:25 05/25/16 11:25 05/25/16 11:25 05/25/16 11:25 05/25/16 11:25 Results - Labs CBC & Chem 7: 05/24/16 06:06 05/24/16 06:06 Labs: Last Result Calcium 9.0 mg/dL (8.6-10.8) 05/24/16 06:06 Iron 40 mcg/dL (65-175) L 05/22/16 04:31 % Saturation 11 % (20-55) L 05/22/16 04:31 Transferrin 263 mg/dL (174-364) 05/22/16 04:31 Ferritin 29 ng/ml (22-275) 05/22/16 04:31 Troponin I 0.05 ng/mL (0-0.03) H* 05/19/16 22:21 Entire Visit Hgb 8.6 g/dL (12.9-16.9) L 05/24/16 06:06 Hct 29.2 % (37.5-50.1) L 05/24/16 06:06 Ferritin 29 ng/ml (22-275) 05/22/16 04:31 - Attending Attestation I examined this patient and my medical decision-making was reviewed with the CAMPUS RECRUITING INTERN/PA/Advanced Practice Nurse/Resident Physician. I agree with the documented findings, disposition and treatment plan as described except to the extent set forth below.
--- NOTE | 2016-05-23 12:43 | Anesthesia Evaluation PreOp ---
Date of Encounter: 05/23/16 Time of Encounter: 12:41 - Past History Planned Operation: EGD Cardiac History: RI, CHF, HTN, Hyperlipidemia, Arrhythmia (Afib), Cardiac Surgery, Cardiac Stent, Pacemaker/ICD (AICD) Pulmonary History: COPD, Other (lung CA) DICER OPERATOR History: Denies Any Significant HX Other Medical History: Renal (ARF) Anesthesia History: Past Anesthesia (CABG, GB, Cardiac stent) Alcohol Use: none Drug use: none Medications and Allergies Budesonide/Formoterol 160/4.5 [Symbicort 160/4.5] 2 puff IH BIDR 02/28/15 [ History] Furosemide [Lasix] 40 mg PO DAILY 02/28/15 [History] Metoprolol XL (24 HR) Succ [Toprol Xl] 50 mg PO DAILY 02/28/15 [History] Simvastatin [Zocor] 20 mg PO DAILY 02/28/15 [History] Tamsulosin [Flomax] 0.4 mg PO DAILY 02/28/15 [History] Tiotropium [Spiriva] 18 mcg IH DAILY 02/28/15 [History] Zolpidem [Ambien] 10 mg PO HS 02/28/15 [History] Aspirin 81 mg PO DAILY #30 tab.chew 03/01/15 [Rx] Albuterol Sulfate [Albuterol Inhaler] 2 puff IH Q4H PRN 12/17/15 [History] Losartan Potassium [Cozaar] 50 mg PO DAILY 12/17/15 [History] Ranolazine [Ranexa] 500 mg PO DAILY 12/17/15 [History] TraMADol [Ultram] 50 - 100 mg PO Q4-6H PRN 12/17/15 [History] Levofloxacin [Levaquin] 500 mg PO DAILY #4 tablet 12/20/15 [Rx] OxyCODONE Immed Rel [Roxicodone 5 MG] 5 - 10 mg PO Q6H PRN #60 tab 12/20/15 [Rx] PredniSONE 40 mg PO DAILY 05/19/16 [History] Allergies codeine Allergy (Verified 05/20/15 09:12) Anaphylaxis - Meds/Allergy Pre-op Review Medications Reviewed: Yes Allergies Reviewed: Yes Beta Blockers on Current Med List: Yes If Beta Blockers taken, Date/Time (Last Dose taken): will give IV metoprolol Anesthesia Results - Labs 05/23/16 04:22 05/23/16 04:22 echo 05/21/16 EF-50% mild pHTN atypical septal motion Anesthesia Exam O2 Sat O2 Sat by Pulse Oximetry 98 O2 Sat by Pulse Oximetry 86 O2 Sat by Pulse Oximetry 97 O2 Sat by Pulse Oximetry 97 O2 Sat by Pulse Oximetry 97 O2 Sat by Pulse Oximetry 98 O2 Sat by Pulse Oximetry 98 O2 Sat by Pulse Oximetry 98 O2 Sat by Pulse Oximetry 97 O2 Sat by Pulse Oximetry 98 O2 Sat by Pulse Oximetry 95 O2 Sat by Pulse Oximetry 95 Vital Signs Pulse Ox 88 L 05/19/16 10:22 Vital Signs/O2 Sat, Most Current Temp Pulse Resp BP Pulse Ox 97.4 F L 97 16 128/89 98 05/23/16 11:57 05/23/16 11:57 05/23/16 11:57 05/23/16 11:57 05/23/16 11:57 Height: 5''' Weight: 234# - HEENT Pupil (Motor): Pupils equal, EOMI Mallampati: III Teeth: Edentulous Oral Opening: Greater than 3 - DICER OPERATOR LOC: Oriented DICER OPERATOR Motor: Normal RUE, Normal LUE, Normal RLE, Normal LLE, Normal Face DICER OPERATOR Sensory: Normal: RUE, LUE, RLE, LLE, Face - Cardiac Rhythm: Irregular Murmur: None JVD: No Carotid Bruit: No - Pulmonary Breath Sounds: bilateral Clear Respiratory Effort: Symmetrical Anesthesia Assess/Plan ASA Score: 4 Modified Feliz Scale for Level of Consciousness: Cooperative, oriented, and tranquil Anesthetic Plan: MAC Autologous Blood: Yes Monitoring Plan: Standard Monitors Recovery Plan: Other
[2016-05-23] MEDS: Sennosides/Docusate Sodium TABLET PO SCH ×2 (14:29→21:17)
[2016-05-23] MEDS: Aspirin 81 MG TAB.CHEW PO SCH (14:29)
[2016-05-23] MEDS: Diltiazem CD (24hr) 120 MG CAPSULE PO SCH (14:29)
[2016-05-23] MEDS: Metoprolol XL (24 HR) Succ 50 MG TAB.ER.24H PO SCH (14:29)
[2016-05-23] MEDS: Ranolazine 500 MG TAB.ER.12H PO SCH (14:29)
[2016-05-23] MEDS: Furosemide 40 MG TABLET PO SCH (14:29)
[2016-05-23] MEDS: traMADol 50 MG TABLET PO PRN (17:15)
--- NOTE | 2016-05-23 20:20 | Internal Med Progress Note ---
Date of Encounter: 05/23/16 Time of Encounter: 15:00 - Assessment and plan (1) Healthcare associated bacterial pneumonia Current Visit: Yes Status: Acute Assessment and plan: We will continue with cefepime and Levaquin. She does not need MRSA coverage at this point. He continues to improve. We will de-escalate tomorrow according to culture and sensitivities. Continue oxygen by nasal cannula. (2) Anemia due to GI blood loss Current Visit: Yes Status: Acute Assessment and plan: I appreciate consult GI. EGD was done showed gastritis. We will treat the patient with PPI. There is a consideration for colonoscopy tomorrow. We will follow up with GI. (3) Atrial fibrillation with RVR Current Visit: Yes Status: Acute (4) Chronic combined systolic and diastolic congestive heart failure Current Visit: Yes Status: Chronic Assessment and plan: Ejection fraction of 40% on 2014 Restart Lasix 40 mg oral daily. Daily weights, strict I's and O's. Fluid restriction. (5) Acute and chronic respiratory failure with hypoxia Current Visit: Yes Status: Acute Assessment and plan: Acute on chronic hypoxic respiratory failure secondary to acute COPD exacerbation due to community-acquired pneumonia suspicious for gram-negative pneumonia Stopped doxycycline and discontinue vancomycin and Zosyn due to acute renal failure continue Levaquin and cefepime Day 3 and planned to de-escalate tomorrow according to sensitivities. Follow blood cultures, continue Solu-Medrol, oxygen and inhalers - Subjective Interval history: 05/23/2016: Patient had upper endoscopy which showed no active bleed, just gastritis. He reports his shortness of breath is mild at rest, reports associated cough. Patient reports improvement in his shortness of breath over the last 24 hours, better with supplemental oxygen. Reports associated dry cough. Reports constipation having not had a bowel movement for the last 3 days. Denies nausea or vomiting rectal bleed, reports lower extremity swelling. - Constitutional Vitals: Temp Pulse Resp BP Pulse Ox 98.0 F 65 16 115/71 94 L 05/23/16 19:11 05/23/16 19:11 05/23/16 19:11 05/23/16 19:11 05/23/16 19:11 General appearance: Present: cooperative, A&O X 3, answers questions appropriately - Eye Eye exam: Present: PERRL, conjuntiva pink, sclera anicteric Pupils: Present: PERRL - Neck Neck exam general surgery: Present: supple, trachea midline. Absent: lymphadenopathy - Respiratory Respiratory exam: Present: CTAB. Absent: accessory muscle use, rales, rhonchi, wheezes - Cardiovascular Cardiovascular exam: Present: RRR, +S1, +S2. Absent: diastolic murmur, gallop, rubs, systolic murmur - Neurological Exam Neurological exam: Present: CN II-XII intact, oriented X3, no focal deficits. Absent: pronater drift, facial droop, speech deficit Internal Medicine: Result - Labs CBC & Chem 7: 05/23/16 04:22 05/23/16 04:22 Labs: Short CBC 05/23/16 Range/Units 04:22 WBC 3.3 L (4.3-11.1) K/mcL Hgb 8.7 L (12.9-16.9) g/dL Hct 29.8 L (37.5-50.1) % Plt Count 98 L (140-400) K/mcL Neutrophils # 3.1 (1.6-8.9) K/mcL BMP 05/23/16 04:22 Sodium 142 Potassium 4.5 Chloride 104 Carbon Dioxide 29 BUN 44 H Creatinine 1.42 H Glucose 164 H Calcium 9.4 Consult Discharge Plan - Plan Referrals: Jaspreet Bal Jr, MD [Primary Care Provider] -
[2016-05-24] MEDS: Ipratropium/Albuterol Neb 3 ML IH SCH ×8 (00:08→23:20)
[2016-05-24] MEDS: Budesonide/Formoterol 160/4.5 MDI IH SCH ×3 (00:09→20:04)
[2016-05-24] MEDS: Cefepime HCl 1,000 MG in D5% in Water (Mini-Bag+) 100 ML IVPB SCH (06:15)
[2016-05-24 06:39] LABS: Immature Granulocytes % 0.6 % (0-4); Segmented Neutrophils % 91.7 %
[2016-05-24 06:41] LABS: Hematocrit 29.2 % (37.5-50.1); Hemoglobin 8.6 g/dL (12.9-16.9); Lymphocytes # 0.1 K/mcL (0.6-4.6); Lymphocytes % 3.7 %; Mean Corpuscular HGB Conc 29.5 g/dL (31.6-35.5); Mean Corpuscular Hemoglobin 23.8 pg (28.0-33.3); Mean Corpuscular Volume 80.7 fL (83.0-100.0); Mean Platelet Volume 11.3 fL (9.4-12.4); Monocytes # 0.1 K/mcL (0.0-1.3); Neutrophils # 3.2 K/mcL (1.6-8.9); Red Blood Count 3.62 M/mcL (4.19-5.50); Red Cell Distribution Width 16.2 % (11.5-14.5)
[2016-05-24 06:47] LABS: BUN/Creatinine Ratio 34 (6-26); Blood Urea Nitrogen 47 mg/dL (8-26); Carbon Dioxide 33 mEq/L (19-29); Chloride 102 mEq/L (98-109); Glucose 128 mg/dL (70-99); Magnesium 1.9 mg/dL (1.6-2.6); Osmolality,Calculated 310 (280-300); Potassium 4.1 mEq/L (3.5-4.5); Sodium 143 mEq/L (136-145); eGFR For African Americans > 60 (> 60); eGFR For Non-African Americans 50 (> 60)
[2016-05-24 07:00] LABS: Platelet Count 92 K/mcL (140-400)
[2016-05-24 08:36] LABS: Platelet Estimate Decreased (Normal)
[2016-05-24] MEDS: Sennosides/Docusate Sodium TABLET PO SCH ×2 (09:44→21:22)
[2016-05-24] MEDS: Ranolazine 500 MG TAB.ER.12H PO SCH (09:44)
[2016-05-24] MEDS: Aspirin 81 MG TAB.CHEW PO SCH (09:44)
[2016-05-24] MEDS: Furosemide 40 MG TABLET PO SCH (09:44)
[2016-05-24] MEDS: Diltiazem CD (24hr) 120 MG CAPSULE PO SCH (09:44)
[2016-05-24] MEDS: Levofloxacin 750 MG/150 ML 750 MG/150 ML BAG IVPB SCH (09:45)
[2016-05-24] MEDS: Pantoprazole 40 MG VIAL IV SCH ×2 (09:45→21:22)
[2016-05-24] MEDS: MethylPREDNISolone 40 MG/ML VIAL IVP SCH ×3 (09:45→23:24)
[2016-05-24] MEDS: Metoprolol XL (24 HR) Succ 50 MG TAB.ER.24H PO SCH (09:45)
[2016-05-24] MEDS ORDERED: Iron Sucrose Complex 500 MG in 0.9 % Sodium Chloride 250 ML IVPB ONE (16:41)
--- NOTE | 2016-05-24 21:40 | Discharge Summary ---
Date of Encounter: 05/24/16 Time of Encounter: 15:36 - Discharge Diagnosis (1) Healthcare associated bacterial pneumonia Priority: Primary Status: Acute (2) Anemia due to GI blood loss Priority: Secondary Status: Acute (3) Atrial fibrillation with RVR Priority: Secondary Status: Acute (4) Chronic combined systolic and diastolic congestive heart failure Priority: Secondary Status: Chronic (5) Acute and chronic respiratory failure with hypoxia Priority: Secondary Status: Acute - Discharge Medications Prescriptions: Diltiazem CD (24hr) [Cardizem CD] 120 mg PO DAILY #30 cap.er.24h Ipratropium/Albuterol Neb [Duoneb] 3 ml IH TID #60 inhsol Levofloxacin 750 mg PO Q48H #2 tablet Metoprolol XL (24 HR) Succ [Toprol Xl] 100 mg PO DAILY #30 tab.er.24h PredniSONE 60 mg PO DAILY #20 tablet Rosuvastatin Calcium [Crestor] 10 mg PO DAILY #30 tablet Home Medications: Budesonide/Formoterol 160/4.5 [Symbicort 160/4.5] 2 puff IH BIDR 02/28/15 [ History] Furosemide [Lasix] 40 mg PO DAILY 02/28/15 [History] Tamsulosin [Flomax] 0.4 mg PO DAILY 02/28/15 [History] Tiotropium [Spiriva] 18 mcg IH DAILY 02/28/15 [History] Zolpidem [Ambien] 10 mg PO HS 02/28/15 [History] Aspirin 81 mg PO DAILY #30 tab.chew 03/01/15 [Rx] Albuterol Sulfate [Albuterol Inhaler] 2 puff IH Q4H PRN 12/17/15 [History] Ranolazine [Ranexa] 500 mg PO DAILY 12/17/15 [History] TraMADol [Ultram] 50 - 100 mg PO Q4-6H PRN 12/17/15 [History] OxyCODONE Immed Rel [Roxicodone 5 MG] 5 - 10 mg PO Q6H PRN #60 tab 12/20/15 [Rx] Ipratropium/Albuterol Neb [Duoneb] 3 ml IH TID #60 inhsol 05/24/16 [Rx] Levofloxacin 750 mg PO Q48H #2 tablet 05/24/16 [Rx] PredniSONE 60 mg PO DAILY #20 tablet 05/24/16 [Rx] Diltiazem CD (24hr) [Cardizem CD] 120 mg PO DAILY #30 cap.er.24h 05/25/16 [Rx] Metoprolol XL (24 HR) Succ [Toprol Xl] 100 mg PO DAILY #30 tab.er.24h 05/25/16 [ Rx] Rosuvastatin Calcium [Crestor] 10 mg PO DAILY #30 tablet 05/25/16 [Rx] Allergies/Adverse Reactions: Allergies codeine Allergy (Verified 05/20/15 09:12) Anaphylaxis Date of admission: 05/20/16 10:10 Primary care physician: Jaspreet Bal Jr, MD Consults: 05/22/16 16:51 Consult to Gastroenterology [CONS] Routine Consulting Provider: Gastroenterology [facility] Reason for Consult: anemia, r/o GI bleed Call Completed: Yes - Patient Status Disposition: Home Health Service Condition: Serious Overall status at discharge: patient is progressing back to baseline - Discharge Instructions Follow Up With: Jaspreet Bal Jr, MD [Primary Care Provider] - - Diet and Activity Activity: increase activity as tolerated Diet: advance to your usual diet, low salt diet Interval History: Update from 05/25/2016: Patient is feeling better today. Denies shortness of breath. He completed iron IV infusion yesterday. He will be discharged home with home health today. Hospital course: Hospital admission: Mr. Munroe is a 81 year old male patient with history of coronary artery disease status post quadruple CABG, chronic COPD chronic respiratory failure, lung cancer, hypertension, cardiomyopathy and chronic combined congestive heart failure presented to the ER with complaints of cough, shortness of breath, malaise, back pain and chest pain. His symptoms have been going on for about 2 weeks now. And they have been progressively getting worse. He has been struggling to breathe since this morning and was in severe distress on presentation to the ER. He was started on Levaquin as outpatient for possible pneumonia and he has been taking it as prescribed. He complains of nausea. No diarrhea. No hemoptysis. Hospital course: Patient was admitted and treated with broad-spectrum antibiotic coverage for pneumonia and with IV steroids and inhaled bronchodilators for COPD. He completed a course of cefepime and also received treatment with Levaquin of which he has 4 more days. He was worked up for anemia and found to have iron deficiency. He has had an upper endoscopy which found evidence of gastritis which was biopsied. There was no active bleed. His hemoglobin remained stable. He elected to not have a colonoscopy. He received iron sucrose infusion 500 mg yesterday and we recommend a second dose at 14 days to be arranged by his PCP. He was evaluated for atrial fibrillation with rapid ventricular response by cardiology and was started on diltiazem. His dose of metoprolol was increased. He will be discharged on diltiazem ER 120 mg and metoprolol succinate 100 mg. He had an echocardiogram which revealed an ejection fraction of 50%. He declined long-term anticoagulation which is reasonable given his low hemoglobin , low platelets and iron deficiency anemia. He had acute kidney injury and his ARB was put on hold and will be discontinued at discharge with the recommendation to follow-up with PCP. His simvastatin was discontinued on discharge due to interaction with diltiazem, and he was prescribed Crestor. Patient was evaluated by palliative care service and he opted for DNR CC CODE STATUS. He elected to not the defibrillated deactivated. Patient's medical stable for discharge home. He will follow up closely with his primary care physician. - Time Spent with Patient Total time spent providing and/or coordinating discharge services: - Constitutional Vitals: Temp Pulse Resp BP Pulse Ox 98.2 F 72 19 117/65 93 L 05/24/16 15:31 05/24/16 15:31 05/24/16 20:04 05/24/16 15:31 05/24/16 20:07 General appearance: Present: cooperative, A&O X 3, answers questions appropriately - Respiratory Respiratory exam: Present: wheezes. Absent: accessory muscle use, rales, rhonchi - Cardiovascular Cardiovascular exam: Present: RRR, +S1, +S2. Absent: diastolic murmur, gallop, rubs, systolic murmur
[2016-05-25] MEDS: Ipratropium/Albuterol Neb 3 ML IH SCH ×3 (04:12→11:10)
[2016-05-25] MEDS: Budesonide/Formoterol 160/4.5 MDI IH SCH (07:28)
[2016-05-25] MEDS: Sennosides/Docusate Sodium TABLET PO SCH (08:23)
[2016-05-25] MEDS: Diltiazem CD (24hr) 120 MG CAPSULE PO SCH (08:23)
[2016-05-25] MEDS: Ranolazine 500 MG TAB.ER.12H PO SCH (08:23)
[2016-05-25] MEDS: Pantoprazole 40 MG VIAL IV SCH (08:24)
[2016-05-25] MEDS: MethylPREDNISolone 40 MG/ML VIAL IVP SCH (08:24)
[2016-05-25] MEDS: Metoprolol XL (24 HR) Succ 50 MG TAB.ER.24H PO SCH (08:24)
[2016-05-25] MEDS: Aspirin 81 MG TAB.CHEW PO SCH (08:24)
--- NOTE | 2016-05-25 09:18 | Internal Med Progress Note ---
Date of Encounter: 05/25/16 Time of Encounter: 09:16 - Assessment and plan (1) Healthcare associated bacterial pneumonia Current Visit: Yes Status: Acute Assessment and plan: Completed cefepime. We will discharge on Levaquin. (2) Anemia due to GI blood loss Current Visit: Yes Status: Acute Assessment and plan: Follow-up biopsy results from EGD at the next PCP visit. Iron sucrose infusion to be arranged with PCP. (3) Atrial fibrillation with RVR Current Visit: Yes Status: Acute Assessment and plan: We will discharged on Toprol and diltiazem. Simvastatin was switched to Crestor. Like his secondary to community-acquired pneumonia and dehydration Cardizem drip has been discontinued, may resume if becomes tachycardic again. Cardiology recommended to continue cardizem 120 mg daily Continue metoprolol echocardiogram EF 50%, mild MR indeterminate diastolic function (4) Chronic combined systolic and diastolic congestive heart failure Current Visit: Yes Status: Chronic Assessment and plan: Ejection fraction of 40% on 2014 Restart Lasix 40 mg oral daily. Daily weights, strict I's and O's. Fluid restriction. (5) Acute and chronic respiratory failure with hypoxia Current Visit: Yes Status: Acute Assessment and plan: Acute on chronic hypoxic respiratory failure secondary to acute COPD exacerbation due to community-acquired pneumonia suspicious for gram-negative pneumonia Stopped doxycycline and discontinue vancomycin and Zosyn due to acute renal failure continue Levaquin and cefepime Day 3 and planned to de-escalate tomorrow according to sensitivities. Follow blood cultures, continue Solu-Medrol, oxygen and inhalers - Subjective Interval history: 05/25/2016: Breathing has improved, denies chest pain and shortness of breath. He will be discharged home today. 05/23/2016: Patient had upper endoscopy which showed no active bleed, just gastritis. He reports his shortness of breath is mild at rest, reports associated cough. Patient reports improvement in his shortness of breath over the last 24 hours, better with supplemental oxygen. Reports associated dry cough. Reports constipation having not had a bowel movement for the last 3 days. Denies nausea or vomiting rectal bleed, reports lower extremity swelling. - Constitutional Vitals: Temp Pulse Resp BP Pulse Ox 97.6 F 90 18 141/89 94 L 05/25/16 07:03 05/25/16 07:03 05/25/16 07:28 05/25/16 07:03 05/25/16 07:28 General appearance: Present: cooperative, A&O X 3, answers questions appropriately - Respiratory Respiratory exam: Present: CTAB. Absent: accessory muscle use, rales, rhonchi, wheezes - Cardiovascular Cardiovascular exam: Present: RRR, +S1, +S2. Absent: diastolic murmur, gallop, rubs, systolic murmur - GI/Abdominal GI/Abdominal exam: Present: normal bowel sounds, soft, no peritoneal signs. Absent: distended, tenderness Internal Medicine: Result - Labs CBC & Chem 7: 05/24/16 06:06 05/24/16 06:06 Consult Discharge Plan - Plan Referrals: Jaspreet Bal Jr, MD [Primary Care Provider] - Prescriptions: Diltiazem CD (24hr) [Cardizem CD] 120 mg PO DAILY #30 cap.er.24h Ipratropium/Albuterol Neb [Duoneb] 3 ml IH TID #60 inhsol Levofloxacin 750 mg PO Q48H #2 tablet Metoprolol XL (24 HR) Succ [Toprol Xl] 100 mg PO DAILY #30 tab.er.24h PredniSONE 60 mg PO DAILY #20 tablet Rosuvastatin Calcium [Crestor] 10 mg PO DAILY #30 tablet
--- NOTE | 2016-05-25 11:34 | Physician Discharge Referral ---
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 For more information, call the [place] [employer] Quit Line at [phone]-EGVM-NOW. - Diet/Nutrition Diet/Nutrition Orders: No Added Salt (MARCO), Cardiac, No Concentrated Sweets - Activity Activity Orders: Walker - Services Needed Following services are medically necessary services: Nursing, Home Health Aide, Physical Therapy - Transfer Medications Prescriptions: Diltiazem CD (24hr) [Cardizem CD] 120 mg PO DAILY #30 cap.er.24h Ipratropium/Albuterol Neb [Duoneb] 3 ml IH TID #60 inhsol Levofloxacin 750 mg PO Q48H #2 tablet Metoprolol XL (24 HR) Succ [Toprol Xl] 100 mg PO DAILY #30 tab.er.24h PredniSONE 60 mg PO DAILY #20 tablet Rosuvastatin Calcium [Crestor] 10 mg PO DAILY #30 tablet Home Medications: Budesonide/Formoterol 160/4.5 [Symbicort 160/4.5] 2 puff IH BIDR 02/28/15 [ History] Furosemide [Lasix] 40 mg PO DAILY 02/28/15 [History] Tamsulosin [Flomax] 0.4 mg PO DAILY 02/28/15 [History] Tiotropium [Spiriva] 18 mcg IH DAILY 02/28/15 [History] Zolpidem [Ambien] 10 mg PO HS 02/28/15 [History] Aspirin 81 mg PO DAILY #30 tab.chew 03/01/15 [Rx] Albuterol Sulfate [Albuterol Inhaler] 2 puff IH Q4H PRN 12/17/15 [History] Ranolazine [Ranexa] 500 mg PO DAILY 12/17/15 [History] TraMADol [Ultram] 50 - 100 mg PO Q4-6H PRN 12/17/15 [History] OxyCODONE Immed Rel [Roxicodone 5 MG] 5 - 10 mg PO Q6H PRN #60 tab 12/20/15 [Rx] Ipratropium/Albuterol Neb [Duoneb] 3 ml IH TID #60 inhsol 05/24/16 [Rx] Levofloxacin 750 mg PO Q48H #2 tablet 05/24/16 [Rx] PredniSONE 60 mg PO DAILY #20 tablet 05/24/16 [Rx] Diltiazem CD (24hr) [Cardizem CD] 120 mg PO DAILY #30 cap.er.24h 05/25/16 [Rx] Metoprolol XL (24 HR) Succ [Toprol Xl] 100 mg PO DAILY #30 tab.er.24h 05/25/16 [ Rx] Rosuvastatin Calcium [Crestor] 10 mg PO DAILY #30 tablet 05/25/16 [Rx] Allergies/Adverse Reactions: Allergies codeine Allergy (Verified 05/20/15 09:12) Anaphylaxis Certification: Further, I certify that my clinical findings support that this patient is homebound (i.e. absences from home require considerable and taxing effort and are for medical reasons or mu-ism services or infrequently or short duration when for other reasons) because: Homebound Reason: Patient requires assistance of a person or device to safely leave home, Leaving home requires considerable and taxing effort due to condition, Severity of cardiac or pulmonary status limits activity tolerance Attestation: My signature below is to certify that this patient is under my care and that I, or nurse practitioner, or a physician's doctor's assistant working with me, has a face-to -face encounter with this patient.
[2016-05-25 11:59] VITALS: BP 137/82
[2016-05-25] MEDS ORDERED: *HR* Propofol 200 MG/20 ML VIAL IVP ONE (12:24)
[2016-05-25] MEDS ORDERED: *HR* Metoprolol 5 MG/5 ML VIAL IVP ONE (12:24)
[2016-05-25] MEDS ORDERED: *HR* Propofol 500 MG/50 ML BOTTLE IVC ONE (12:24)
--- NOTE | 2016-05-25 13:16 | Physician Discharge Referral ---
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 For more information, call the [place] [employer] Quit Line at [phone]-EBLJ-NOW. - Diet/Nutrition Diet/Nutrition Orders: No Added Salt (MARCO), Cardiac, No Concentrated Sweets - Activity Activity Orders: Ambulate - Services Needed Following services are medically necessary services: Nursing, Home Health Aide, Physical Therapy - Transfer Medications Prescriptions: Diltiazem CD (24hr) [Cardizem CD] 120 mg PO DAILY #30 cap.er.24h Ipratropium/Albuterol Neb [Duoneb] 3 ml IH TID #60 inhsol Levofloxacin 750 mg PO Q48H #2 tablet Metoprolol XL (24 HR) Succ [Toprol Xl] 100 mg PO DAILY #30 tab.er.24h PredniSONE 60 mg PO DAILY #20 tablet Rosuvastatin Calcium [Crestor] 10 mg PO DAILY #30 tablet Home Medications: Budesonide/Formoterol 160/4.5 [Symbicort 160/4.5] 2 puff IH BIDR 02/28/15 [ History] Furosemide [Lasix] 40 mg PO DAILY 02/28/15 [History] Tamsulosin [Flomax] 0.4 mg PO DAILY 02/28/15 [History] Tiotropium [Spiriva] 18 mcg IH DAILY 02/28/15 [History] Zolpidem [Ambien] 10 mg PO HS 02/28/15 [History] Aspirin 81 mg PO DAILY #30 tab.chew 03/01/15 [Rx] Albuterol Sulfate [Albuterol Inhaler] 2 puff IH Q4H PRN 12/17/15 [History] Ranolazine [Ranexa] 500 mg PO DAILY 12/17/15 [History] TraMADol [Ultram] 50 - 100 mg PO Q4-6H PRN 12/17/15 [History] OxyCODONE Immed Rel [Roxicodone 5 MG] 5 - 10 mg PO Q6H PRN #60 tab 12/20/15 [Rx] Ipratropium/Albuterol Neb [Duoneb] 3 ml IH TID #60 inhsol 05/24/16 [Rx] Levofloxacin 750 mg PO Q48H #2 tablet 05/24/16 [Rx] PredniSONE 60 mg PO DAILY #20 tablet 05/24/16 [Rx] Diltiazem CD (24hr) [Cardizem CD] 120 mg PO DAILY #30 cap.er.24h 05/25/16 [Rx] Metoprolol XL (24 HR) Succ [Toprol Xl] 100 mg PO DAILY #30 tab.er.24h 05/25/16 [ Rx] Rosuvastatin Calcium [Crestor] 10 mg PO DAILY #30 tablet 05/25/16 [Rx] Allergies/Adverse Reactions: Allergies codeine Allergy (Verified 05/20/15 09:12) Anaphylaxis Certification: Further, I certify that my clinical findings support that this patient is homebound (i.e. absences from home require considerable and taxing effort and are for medical reasons or yazidi services or infrequently or short duration when for other reasons) because: Homebound Reason: Patient requires assistance of a person or device to safely leave home, Leaving home requires considerable and taxing effort due to condition, Severity of cardiac or pulmonary status limits activity tolerance Attestation: My signature below is to certify that this patient is under my care and that I, or nurse practitioner, or a physician's economic research assistant working with me, has a face-to -face encounter with this patient.
[2016-05-26] MEDS ORDERED: levoFLOXacin 750 MG TABLET PO SCH (09:00)
== END 2016-05-25 12:25 | disposition home health service (06) | DRG 189 ==
LOC: EMEROO 10:20 → 2NENU 10:20 → SUATTDRO 05-20 10:10
PROVIDERS: ADMIT Internal Medicine; ATTEND Internal Medicine
PROC: ENDOEBX (2016-05-23 12:00)